=== PATIENT | male | born 1955 | race Caucasian/White ===

== ENCOUNTER 2018-05-29 17:06 | Observation (INO) ==
--- NOTE | 2018-05-29 17:19 | Emergency Department Note ---
ED Disposition Clinical Impression: Non-ST elevation [place] (NSTEMI) Disposition: Still a Patient Condition on Discharge: Good Referrals: Wen Spence [Primary Care Provider] - - Critical Care Critical Care Time: No Attestation: On , the high probability of a clinically significant, sudden or life threatening deterioration of the following system(s) required my full and direct attention, intervention and personal management. The time I documented below is in addition to time spent performing reported procedures but includes the following listed in this critical care notation. Medical Decision Making - Tato Inquiry Pt receiving controlled substance: No Vital Signs: 05/29/18 17:06 05/29/18 17:36 05/29/18 18:09 Temperature 98.3 F Temperature Source Oral Pulse Rate [Right Brachial] 73 68 71 Respiratory Rate 18 20 18 Blood Pressure [Right Arm] 180/97 158/85 163/90 Blood Pressure Mean [Right Arm] 124 109 114 Blood Pressure Source [Right Arm] Automatic Cuff Automatic Cuff Automatic Cuff Blood Pressure Position [Right Arm] Sitting Sitting Sitting 02 Sat by Pulse Oximetry 97 98 99 Oxygen Delivery Method Room Air Room Air Room Air - Lab Data Lab Results 05/29/18 17:10: WBC 9.2, RBC 5.29, Hgb 15.2, Hct 44.6, MCV 84.2, MCH 28.8, MCHC 34.2, RDW 13.4, Plt Count 240, MPV 6.6 L, Neut % (Auto) 62.4, Lymph % (Auto) 27.9, [place] % (Auto) 6.1, Eos % (Auto) 3.3, Baso % (Auto) 0.3, Neut # (Auto) 5.8 , Lymph # (Auto) 2.6, [place] # (Auto) 0.6, Eos # (Auto) 0.3, Baso # (Auto) 0.0 05/29/18 17:10: Sodium 139, Potassium 3.7, Chloride 102, Carbon Dioxide 29, Anion Gap 11.7, BUN 13, Creatinine 0.86, Estimated Creat Clear 103, Estimated GFR 89, Est GFR ( Amer) 108, Glucose 147 H, Calcium 9.7, Troponin I 1.45 H Result diagrams: 05/29/18 17:10 05/29/18 17:10 Orders (Tests/Meds): ED MEDICATIONS Generic Name Dose Route Start Last Admin Trade Name Freq PRN Reason Stop Dose Admin Atorvastatin Calcium 40 mg 05/29/18 21:00 Lipitor 40mg Tablet PO 06/28/18 20:59 HS ERIKA Enoxaparin Sodium 100 mg 05/29/18 18:15 Lovenox 100mg/Ml Syringe SQ 06/28/18 18:14 Q12H ERIKA Metoprolol Tartrate 25 mg 05/29/18 18:15 Lopressor 25mg Tablet PO 06/28/18 18:14 Q8H ERIKA Discontinued Medications Generic Name Dose Route Start Last Admin Trade Name Freq PRN Reason Stop Dose Admin Aspirin 324 mg 05/29/18 17:19 05/29/18 17:26 Aspirin 81mg Chewable Tablet PO 05/29/18 17:20 324 mg ONCE ONE Administration Ticagrelor 180 mg 05/29/18 18:02 Brilinta 90mg Tablet PO 05/29/18 18:03 ONCE ONE ORDERS Category Date Time Status XR chest portable Stat Exams 05/29/18 17:19 Taken - Radiology Data #1 Image(s): Chest Image Reviewed: Yes I reviewed the patient's radiology image Preliminary Findings: Normal/NAD - ECG Data Tracing #1 EKG interpreted by Dedrick Ybarra MD: Rhythm: sinus Rate: 77 [place]: Left Ectopy: none Conduction: normal ST Segment Changes: none T Wave Changes: none Q Waves: none LVH with repolarization abnormality Poor R wave progression No prior EKGs available for comparison - Physician Consults Physician Consulted: Genaro Time: 18:02 Reason -: Cardiology Eval/Care Comment/Response: Lovenox 1 mg/kg twice daily, Brilinta 180 mg p.o., metoprolol tartrate 25 mg every 8 hours, Lipitor 40 mg daily. Aspirin already administered. Additional Consult: Kiki Time: 18:07 Reason -: Admission Comment/Response: Fasting BMP in the morning - GRISELDA Score for Non-STEMI Age of patient: 65 yrs or more Number of risk factors for CAD: Presence of less than 3 Prior coronary artery stenosis(seen in coronary angiography): Less than 50% ST-Segment deviation on ECG (more than 1 min): Absent Prior aspirin intake: No ASA in the last 7 days Severe anginal chest pain: No or one episode in last 24 hours Elevated cardiac markers(CK-MB or troponin): Present Non-Stemi Risk Score: 2 General Adult HPI - General Chief complaint: Chest Pain Stated complaint: chest pain Time Seen by Provider: 05/29/18 17:12 Mode of Arrival: Ambulatory Limitations: No Limitations Description of Symptoms (Recalled from ER Triage Doc. by RN): Pt reported aching chest pain in sternal area, pt reports pain began approx 5 mins after moving heavy shelving around. Pt reports he saw his PCP after chest pain, went [facility] outpatient lab work, states his PCP office called him to tell him his Troponin level was elevated and he needed to go to the ER. Pt denies presence of pain at this time - History of Present Illness HPI narrative: The patient had a 30-minute episode of chest pain today at about 2 PM accompanied by profuse diaphoresis, tingling in his left fingers. Denies shortness of breath. Had some sensation of heartburn, but no nausea or vomiting. No radiation. No previous similar pains. Currently pain-free. Saw his primary care physician who did an EKG in the office and sent him for outpatient laboratories. Troponin came back elevated so they called him and sent him into the emergency room to be evaluated. He does not have any known heart disease, diabetes, hypertension, or hyperlipidemia. He is a non-smoker. Family history of a heart attack in a grandparent and strokes in a brother. - Related Data Allergies Allergy/AdvReac Type Severity Reaction Status Date / Time penicillin G [PENICILLIN G] Allergy Unknown Verified 05/29/18 17:12 BEE STINGS Allergy Unknown Uncoded 10/03/17 15:17 [facility] History I have reviewed the patient's past medical history: Yes Medical History: Denies:: Diabetes Mellitus Type 1, Diabetes Mellitus Type 2 - Social History Alcohol Intake: never - Psychiatric History Expresses thoughts of harming self/others: None Suicide Plan Description: No Plan ROS Obtained: Yes All systems reviewed & no additional complaints - Constitutional Constitutional: Reports excessive sweating - Cardiovascular Cardiovascular: Reports chest pain - Gastrointestinal Gastrointestingal: Reports: as per HPI, dyspepsia. Denies: nausea, vomiting - Neurologic Neurologic: Reports tingling Physical Exam - General General appearance: alert, in no apparent distress - Head Head exam: atraumatic, normocephalic, normal inspection - Eye Eye exam: Present: normal appearance, PERRL, EOMI - ENT ENT exam: Present: mucous membranes moist - Neck Neck exam: Present: normal inspection, full ROM, trachea midline. Absent: meningismus, lymphadenopathy - Chest Chest inspection: Present: normal inspection, symmetric chest wall rise. Absent : tenderness - Respiratory Respiratory exam: Present: normal lung sounds bilaterally. Absent: respiratory distress - Cardiovascular Cardiovascular exam: Present: regular rate, normal rhythm. Absent: JVD - Abdominal Exam Abdominal exam: Present: soft, normal bowel sounds. Absent: distention, tenderness, guarding - Extremities Exam Extremities exam: Present: normal inspection, full ROM, normal capillary refill. Absent: calf tenderness - Neurological Exam Neurological exam: Present: alert, oriented X3 - Psychiatric Psychiatric exam: Present: normal affect, normal mood - Skin Skin exam: Present: warm, dry, intact, normal color
[2018-05-29 17:30] LABS: Basophils % 0.3 % (0.1-2.0); Eosinophils # 0.3 K/mm3 (0.0-0.4); Eosinophils % 3.3 % (0.1-12.0); Hematocrit 44.6 % (42.0-52.0); Hemoglobin 15.2 g/dL (14.1-18.0); Lymphocytes # 2.6 K/mm3 (0.7-4.5); Lymphocytes % 27.9 K/mm3 (10-50); Mean Corpuscular HGB Conc 34.2 g/dL (31.8-35.4); Mean Corpuscular Hemoglobin 28.8 pg (27.0-31.2); Mean Corpuscular Volume 84.2 fl (80-94); Mean Platelet Volume 6.6 fl (7.4-10.4); Monocytes # 0.6 K/mm3 (0.1-1.0); Monocytes % 6.1 % (1.7-9.3); Neutrophils # 5.8 K/mm3 (1.8-7.8); Neutrophils % 62.4 % (37.0-80.0); Platelet Count 240 K/mm3 (142-424); Red Blood Count 5.29 M/mm3 (4.60-6.20); Red Cell Distribution Width 13.4 % (11.5-17.5); White Blood Count 9.2 K/mm3 (4.8-10.8)
[2018-05-29 17:53] LABS: Anion Gap 11.7 mEq/L (5-15); Calcium 9.7 mg/dL (8.5-10.1); Potassium 3.7 mmoL/L (3.5-5.1)
[2018-05-30 06:06] LABS: Anion Gap 8.9 mEq/L (5-15); Calcium 9.3 mg/dL (8.5-10.1); Potassium 3.9 mmoL/L (3.5-5.1)
[2018-05-30 07:04] LABS: Chol/HDL Ratio 4.7 (1-3.5)
--- NOTE | 2018-05-30 07:13 | Pharmacy Consult Notes ---
[facility] Pharmacy VTE Monitoring - Patient Demographics Admission date: 05/29/18 Report Date: 05/30/18 Time: 07:13 Allergies/Adverse Reactions: Patient Allergies penicillin G [PENICILLIN G] Allergy (Unknown, Verified 05/29/18 17:12) BEE STINGS Allergy (Unknown, Uncoded 10/03/17 15:17) Height: 1.75 m Weight: 102.625 kg Patient Problems: Current Active Problems Non-ST elevation [place] (NSTEMI) (Acute) - VTE Risk Labs: VTE Related Lab Results Hgb 15.2 g/dL (14.1-18.0) 05/29/18 17:10 Hct 44.6 % (42.0-52.0) 05/29/18 17:10 Plt Count 240 K/mm3 (142-424) 05/29/18 17:10 BUN 11 mg/dL (7-18) 05/30/18 05:41 Creatinine 0.84 mg/dL (0.70-1.30) 05/30/18 05:41 Estimated Creat Clear 107 mL/min (0-300) 05/30/18 05:41 VTE Score: 7 VTE Risk Level: Moderate Risk - Prophylaxis VTE Prophylaxis Ordered?: Yes Types of VTE Prophylaxis: TEDS Knee High Location of Applied Device: Bilateral Lower Extremeties - VTE Diagnosis Confirmed Treatment or plan recommended: Continue Current Treatment
--- NOTE | 2018-05-30 07:54 | History & Physical Report ---
*Admission Date: 05/29/18 *Chief complaint: Chest pain *History of present illness: 63-year-old white male, retired pharmacist, with no past medical history other than a nonhealing wound on his left anterior cohen, from an accident several years ago with chronically recurring superficial cellulitis, who had a 30 minute episode of chest pain yesterday that was in the left lateral sternal border with minimal left arm tingling. Had some heaviness but no diaphoresis or nausea or vomiting. Went to his physician in [place] where enzymes were drawn and were positive. Instructed to come to the emergency department and he came to [facility] to be evaluated. Enzymes were repeated, once again found to be elevated. Non-STEMI was diagnosed , no EKG changes were noted and he was admitted to hospital for overnight observation and evaluation by cardiology for probable left heart cath. This morning he is pain-free and has no complaints per [facility] History I have reviewed the patient's past medical history: Yes Medical History: Denies:: Cancer, Diabetes Mellitus Type 1, Diabetes Mellitus Type 2, Internal Pacemaker, MRSA Other Medical History: Reports: Arthritis Comment: Nonhealing wound on the left cohen, treated in 2013 with antibiotics. Cultured and found to be non-staph, breaks open occasionally. Patient denies history of diabetes Laterality Cases: Left: Arthroscopy Knee, Bilateral: Tonsillectomy Other Surgeries: No: Pacemaker Amputation: No Fractures: Yes - *Social History Educational Level: Completed College Smoking Status: Former smoker Tobacco Type: cigarettes #Yrs smoked (if former smoker): 1 Alcohol Intake: current Alcohol Intake Frequency:: holidays/special occasions only Occupational Status: retired Housing: house Household Members: spouse - Psychiatric History Expresses thoughts of harming self/others: None Suicide Plan Description: No Plan *Family Hx:: Cancer, Coronary Artery Disease, Heart Attack, Hyperlipidemia, Hypertension, Stroke, Thyroid Disorder Review of Systems - Review of Systems Review of systems:: pertinent systems reviewed and negative unless documented below - Constitutional Denies body ache(s) - Eyes Denies blind spots, Denies blurry vision - ENT Denies bleeding gums, Denies dry mouth - *Cardiovascular Reports chest pain, Reports chest pain at rest, Denies shortness of breath, Denies shortness of breath with activity - *Respiratory Denies change in phlegm color, Denies chest congestion, Denies cough - *Gastrointestinal Denies abdominal pain, Denies belching - *Genitourinary Denies difficulty urinating - *Musculoskeletal Reports joint pain, Denies abnormal walking, Denies limited joint movement, Denies loss of height - Integumentary/Breasts Reports non-healing lesions (On left leg), Reports sores - *Neurologic Reports tingling, Denies abnormal walking, Denies abnormal hearing Meds Home Medications Medication Instructions Recorded Confirmed Type No Known Home Medications 05/30/18 05/30/18 History Allergies Allergy/AdvReac Type Severity Reaction Status Date / Time penicillin G [PENICILLIN G] Allergy Unknown Verified 05/29/18 17:12 BEE STINGS Allergy Unknown Uncoded 10/03/17 15:17 Exam Vital signs and Labs for Last 24 Hours: Temp Pulse Resp BP Pulse Ox 98.9 F 60 14 135/71 98 05/30/18 05:02 05/30/18 05:02 05/30/18 05:02 05/30/18 05:02 05/30/18 05:02 Laboratory Results - last 24 hr 05/29/18 17:10: WBC 9.2, RBC 5.29, Hgb 15.2, Hct 44.6, MCV 84.2, MCH 28.8, MCHC 34.2, RDW 13.4, Plt Count 240, MPV 6.6 L, Neut % (Auto) 62.4, Lymph % (Auto) 27.9, [place] % (Auto) 6.1, Eos % (Auto) 3.3, Baso % (Auto) 0.3, Neut # (Auto) 5.8 , Lymph # (Auto) 2.6, [place] # (Auto) 0.6, Eos # (Auto) 0.3, Baso # (Auto) 0.0 05/29/18 17:10: Sodium 139, Potassium 3.7, Chloride 102, Carbon Dioxide 29, Anion Gap 11.7, BUN 13, Creatinine 0.86, Estimated Creat Clear 103, Estimated GFR 89, Est GFR ( Amer) 108, Glucose 147 H, Calcium 9.7, Troponin I 1.45 H 05/29/18 19:40: Troponin I 2.17 H 05/30/18 05:41: Sodium 140, Potassium 3.9, Chloride 105, Carbon Dioxide 30, Anion Gap 8.9, BUN 11, Creatinine 0.84, Estimated Creat Clear 107, Estimated GFR 92, Est GFR ( Amer) 111, Glucose 152 H, Calcium 9.3 05/30/18 05:41: Triglycerides 149, Cholesterol 197, LDL Cholesterol 125, VLDL Cholesterol 30, HDL Cholesterol 42, Cholesterol/HDL Ratio 4.7 H I & O for Last 24 hours: Intake & Output 05/27/18 05/28/18 05/29/18 05/30/18 11:59 11:59 11:59 11:59 Weight 226 lb 4 oz Narrative: Oropharynx clear, moist. No ENT abnormalities otherwise, no JVD. Lungs in the anterior panchal are clear, heart rate regular without murmurs, moving all extremities normal power. Abdomen soft nontender. Edema in his legs, however the anterior left cohen two [address] to the ankle has a nonhealing wound with surrounding brawny skin changes without edema , with some yellow scant exudate on the bandage. H&P: Result - Labs Labs: Short CBC 05/29/18 Range/Units 17:10 WBC 9.2 (4.8-10.8) K/mm3 Hgb 15.2 (14.1-18.0) g/dL Hct 44.6 (42.0-52.0) % Plt Count 240 (142-424) K/mm3 BMP 05/29/18 05/30/18 17:10 05:41 Sodium 139 140 Potassium 3.7 3.9 Chloride 102 105 Carbon Dioxide 29 30 BUN 13 11 Creatinine 0.86 0.84 Glucose 147 H 152 H Calcium 9.7 9.3 Cardiac Enzymes 05/29/18 05/29/18 Range/Units 17:10 19:40 Troponin I 1.45 H 2.17 H (0.00-0.06) ng/ml Assessment and Plan (1) Diabetes mellitus type 2, noninsulin dependent Current visit: Yes Status: Chronic Category: Medical Code(s): E11.9 - Type 2 diabetes mellitus without complications Newly diagnosed. Patient has no knowledge of diabetes in the past. After heart cath and on discharge we will discharge on appropriate medication probably institute metformin therapy. (2) Non-healing ulcer of lower leg Current visit: Yes Status: Acute Category: Medical Code(s): L97.909 - Non- pressure chronic ulcer of unspecified part of unspecified lower leg with unspecified severity Consistent with diagnosis of diabetes. Wound care with lymphedema consult (3) Non-ST elevation [place] (NSTEMI) Current visit: Yes Status: Acute Category: Medical Code(s): I21.4 - Non- ST elevation (NSTEMI) myocardial infarction Cardiology consultation today.
--- NOTE | 2018-05-30 08:35 | Consult Report ---
History of Present Illness Consult date: 05/30/18 Requesting physician: Owen Swanson Consult reason: chest pain Chief complaint: chest pain Additional Medical History:: 1. Prediabetic with history of hemoglobin A1c of 7.8 1 year ago, treated with diet and weight loss 2. History of hyperlipidemia, treated with diet and weight loss 3. Recurrent left cohen ulcer 4. Left testicular hydrocele 5. Non-ST elevation [place], 05/29/18 History of present illness: 63-year-old white male with history as noted above presented to his doctor's office in [place] for complaint of 25-30 minutes of anterior chest pressure with some left finger tingling that began after removing some heavy items. He denies any significant pain, shortness of breath or diaphoresis. He did have some nausea/indigestion type symptoms. Symptoms had largely resolved by the time he got to the doctor's office but an abnormal EKG and initial troponin elevation prompted referral to the ER for further evaluation. In the ER second troponin was noted to be elevated as well patient was admitted for non-ST elevation [place]. EKG shows sinus rhythm with poor R-wave progression anteriorly with no acute ST elevation. Patient was given aspirin and Brilinta with no further chest pain overnight. Cardiology consulted for evaluation recommendations. [facility] History Medical History: Denies:: Cancer, Diabetes Mellitus Type 1, Diabetes Mellitus Type 2, Internal Pacemaker, MRSA Other Medical History: Reports: Arthritis Laterality Cases: Left: Arthroscopy Knee, Bilateral: Tonsillectomy Other Surgeries: No: Pacemaker Amputation: No Fractures: Yes - *Social History Educational Level: Completed College Smoking Status: Former smoker Tobacco Type: cigarettes #Yrs smoked (if former smoker): 1 Alcohol Intake: current Alcohol Intake Frequency:: holidays/special occasions only Occupational Status: retired Housing: house Household Members: spouse - Psychiatric History Expresses thoughts of harming self/others: None Suicide Plan Description: No Plan *Family Hx:: Cancer, Coronary Artery Disease, Heart Attack, Hyperlipidemia, Hypertension, Stroke, Thyroid Disorder Meds Home Medications Medication Instructions Recorded Confirmed Type No Known Home Medications 05/30/18 05/30/18 History Allergies Allergy/AdvReac Type Severity Reaction Status Date / Time penicillin G [PENICILLIN G] Allergy Unknown Verified 05/29/18 17:12 BEE STINGS Allergy Unknown Uncoded 10/03/17 15:17 Review of Systems - *Cardiovascular Reports chest pain, Reports shortness of breath with activity - *Respiratory Denies shortness of breath with activity - *Gastrointestinal Denies abdominal pain - *Genitourinary Denies difficulty urinating - *Musculoskeletal Denies joint pain - *Neurologic Reports tingling, Denies abnormal walking, Denies abnormal hearing Exam Vital signs and Labs for Last 24 Hours: Temp Pulse Resp BP Pulse Ox 98.5 F 64 18 134/91 96 05/30/18 08:02 05/30/18 08:02 05/30/18 08:02 05/30/18 08:02 05/30/18 08:02 Laboratory Results - last 24 hr 05/29/18 17:10: WBC 9.2, RBC 5.29, Hgb 15.2, Hct 44.6, MCV 84.2, MCH 28.8, MCHC 34.2, RDW 13.4, Plt Count 240, MPV 6.6 L, Neut % (Auto) 62.4, Lymph % (Auto) 27.9, [place] % (Auto) 6.1, Eos % (Auto) 3.3, Baso % (Auto) 0.3, Neut # (Auto) 5.8 , Lymph # (Auto) 2.6, [place] # (Auto) 0.6, Eos # (Auto) 0.3, Baso # (Auto) 0.0 05/29/18 17:10: Sodium 139, Potassium 3.7, Chloride 102, Carbon Dioxide 29, Anion Gap 11.7, BUN 13, Creatinine 0.86, Estimated Creat Clear 103, Estimated GFR 89, Est GFR ( Amer) 108, Glucose 147 H, Calcium 9.7, Troponin I 1.45 H 05/29/18 19:40: Troponin I 2.17 H 05/30/18 05:41: Sodium 140, Potassium 3.9, Chloride 105, Carbon Dioxide 30, Anion Gap 8.9, BUN 11, Creatinine 0.84, Estimated Creat Clear 107, Estimated GFR 92, Est GFR ( Amer) 111, Glucose 152 H, Calcium 9.3 05/30/18 05:41: Triglycerides 149, Cholesterol 197, LDL Cholesterol 125, VLDL Cholesterol 30, HDL Cholesterol 42, Cholesterol/HDL Ratio 4.7 H I & O for Last 24 hours: Intake & Output 05/27/18 05/28/18 05/29/18 05/30/18 11:59 11:59 11:59 11:59 Intake Total 0 / 0 Balance 0 / 0 Weight 226 lb 4 oz - *Routine Neck Exam Absent: JVD, carotid bruit - *Routine Respiratory Exam Present: CTA bilaterally - *Routine Cardiovascular Exam Present: RRR. Absent: murmur, gallop, rubs - *Routine Abdominal Exam Present: soft, tenderness - *Routine Extremities Exam Absent: edema - *Routine Neurological Exam Present: alert, oriented X3, moving all extremities Assessment and Plan (1) Non-ST elevation [place] (NSTEMI) Current visit: Yes Status: Acute Category: Medical Code(s): I21.4 - Non- ST elevation (NSTEMI) myocardial infarction (2) Diabetes mellitus type 2, noninsulin dependent Current visit: Yes Status: Chronic Category: Medical Code(s): E11.9 - Type 2 diabetes mellitus without complications (3) Non-healing ulcer of lower leg Current visit: Yes Status: Acute Category: Medical Code(s): L97.909 - Non- pressure chronic ulcer of unspecified part of unspecified lower leg with unspecified severity - Assessment and plan all Dx Assessment and Plan for all problems:: 1. Patient has been started on dual antiplatelet therapy in the form of aspirin and Brilinta. He is also been started on metoprolol therapy. 2. In the setting of non-ST elevation MS, left heart catheterization has been recommended. Risks, benefits and procedure explained to the patient and his and they both agree to proceed. 3. Will obtain an echocardiogram due to non-ST elevation [place]. 4. With history of hyperlipidemia on no medical therapy will obtain repeat lipid and liver enzymes prior to discharge. Statin therapy has been started.
[2018-05-31 06:04] LABS: Basophils % 0.4 % (0.1-2.0); Eosinophils # 0.2 K/mm3 (0.0-0.4); Eosinophils % 1.8 % (0.1-12.0); Hematocrit 43.3 % (42.0-52.0); Hemoglobin 14.7 g/dL (14.1-18.0); Lymphocytes # 2.6 K/mm3 (0.7-4.5); Lymphocytes % 23.8 K/mm3 (10-50); Mean Corpuscular Hemoglobin 28.8 pg (27.0-31.2); Mean Corpuscular Volume 84.9 fl (80-94); Mean Platelet Volume 6.6 fl (7.4-10.4); Monocytes # 0.7 K/mm3 (0.1-1.0); Monocytes % 6.2 % (1.7-9.3); Neutrophils # 7.3 K/mm3 (1.8-7.8); Neutrophils % 67.8 % (37.0-80.0); Platelet Count 222 K/mm3 (142-424); Red Cell Distribution Width 13.4 % (11.5-17.5); White Blood Count 10.8 K/mm3 (4.8-10.8)
[2018-05-31 06:05] LABS: Anion Gap 12.1 mEq/L (5-15); Calcium 9.3 mg/dL (8.5-10.1); Potassium 4.1 mmoL/L (3.5-5.1)
--- NOTE | 2018-05-31 08:39 | Progress Note ---
Subjective Date: 05/31/18 Time: 08:32 Principal diagnosis: NSTEMI Interval history: 63 yo WM at bedside eating breakfast in NAD. No chest pains or SOA. Exam Vital signs and Labs for Last 24 Hours: Temp Pulse Resp BP Pulse Ox 99.0 F 60 16 124/63 96 05/31/18 08:00 05/31/18 08:00 05/31/18 08:00 05/31/18 08:00 05/31/18 08:00 Laboratory Results - last 24 hr 05/30/18 10:48: Activated Clotting Time > 400 H* 05/31/18 05:40: WBC 10.8, RBC 5.10, Hgb 14.7, Hct 43.3, MCV 84.9, MCH 28.8, MCHC 34.0, RDW 13.4, Plt Count 222, MPV 6.6 L, Neut % (Auto) 67.8, Lymph % (Auto ) 23.8, [place] % (Auto) 6.2, Eos % (Auto) 1.8, Baso % (Auto) 0.4, Neut # (Auto) 7.3, Lymph # (Auto) 2.6, [place] # (Auto) 0.7, Eos # (Auto) 0.2, Baso # (Auto) 0.0 05/31/18 05:40: Sodium 138, Potassium 4.1, Chloride 104, Carbon Dioxide 26, Anion Gap 12.1, BUN 14 D, Creatinine 0.83, Estimated Creat Clear 107, Estimated GFR 93, Est GFR ( Amer) 113, Glucose 160 H, Calcium 9.3 05/31/18 05:40: Hemoglobin A1c 7.3 H I & O for Last 24 hours: Intake & Output 05/28/18 05/29/18 05/30/18 05/31/18 11:59 11:59 11:59 11:59 Intake Total 0 / 0 480 / 480 Output Total 600 / 600 Balance 0 / 0 -120 / -120 Weight 226 lb 4 oz 219 lb 4 oz - *Routine Respiratory Exam Present: CTA bilaterally - *Routine Cardiovascular Exam Present: RRR. Absent: murmur, gallop, rubs Progress Note: A&P (1) Non-ST elevation [place] (NSTEMI) Status: Acute Current Visit: Yes (2) Diabetes mellitus type 2, noninsulin dependent Status: Chronic Current Visit: Yes (3) Non-healing ulcer of lower leg Status: Acute Current Visit: Yes Assessment and Plan for All Diagnoses:: OK for discharge from Cardiology standpoint. Continue ASA 81 mg daily, Brilinta 90 mg BID, Atorvastatin 40 mg daily and lisinopril 2.5 mg daily. Follow up in one to two weeks.
--- NOTE | 2018-05-31 08:45 | Discharge Summary ---
General - General Admission date:: 05/29/18 Discharge date: 05/31/18 HPI HPI: 63-year-old white male, retired pharmacist, with no past medical history other than a nonhealing wound on his left anterior cohen, from an accident several years ago with chronically recurring superficial cellulitis, who had a 30 minute episode of chest pain yesterday that was in the left lateral sternal border with minimal left arm tingling. Had some heaviness but no diaphoresis or nausea or vomiting. Went to his physician in [place] where enzymes were drawn and were positive. Instructed to come to the emergency department and he came to [facility] to be evaluated. Enzymes were repeated, once again found to be elevated. Non-STEMI was diagnosed , no EKG changes were noted and he was admitted to hospital for overnight observation and evaluation by cardiology for probable left heart cath. This morning he is pain-free and has no complaints per. Hospital Course Hospital Course: Patient was admitted, ruled in for myocardial infarction by enzyme criteria. EKG showed no evidence of ST segment changes and the diagnosis of non-STEMI was made. Patient was also found to be hyperglycemic. He states that he is known about this a while but has been "controlling it with diet." Patient was taken to left heart cath the morning after admission. Please see report below copied into this dictation document: ANGIOGRAPHIC RESULTS: 1. The left main artery normal 2. The left anterior descending artery has proximal 40-50% stenoses followed by additional 40% mid vessel stenosis along 90% stenosis which extends all the way down into the distal portion of the LAD. Very distally as the LAD wraps the apex is a long 80-90% stenosis. circumflex artery is a nondominant vessel and has proximal 30% with a 40-50% stenosis which then gives rise to a first obtuse marginal artery with minimal disease. 3. The circumflex artery is a nondominant vessel and has proximal 30% with a 40-50% stenosis which then gives rise to a first obtuse marginal artery with minimal disease. 4. The right coronary artery is a dominant vessel and has a mid vessel 70% stenosis with distal occlusion of the LAD. The posterior lateral ventricular branch is a large vessel and has proximal 40% stenosis distal 60-70% stenosis. This is a very large branching marginal vessel. 5. The SILVA ventriculogram reveals preserved ejection fraction 55% 6. The left ventricular end-diastolic pressure 15 to 20 mmHg IMPRESSION: 1. Severe coronary artery disease as described above 2. Successful reconstruction of the mid and distal LAD severe disease reduced to less than 10% with 3 drug-eluting stents 3. Severe disease in the mid dominant right coronary artery with successful stenting the mid right coronary artery severe disease reduced to 0% with 1 drug-eluting stent 4. Occlusion of the posterior descending artery with successful revascularization with a drug-eluting stent restoring the 100% occlusion to 0% with GRISELDA-3 distal runoff 5. Preserved ejection fraction 6. Mildly elevated LVEDP PLAN: 1. Brilinta and aspirin 2. LDL less than 55 3. Risk factor modification 4. Cardiac rehabilitation 5. Avoidance of tobacco products 6. Chandan inhibitors beta blockers Patient did well after catheterization. Hemoglobin A1c this morning was 7.6. Patient will be discharged home today with the above-noted medications although we will avoid beta blockers because of his resting bradycardia, we will start metformin 500 twice daily. Follow-up will be per cardiology in 1 week and with his regular physician in 2 weeks. Please note before discharge she will have physical therapy wound care evaluation for the long-term nonhealing wound on his cohen with evaluation from our lymphedema special Objective Vital signs: Temp Pulse Resp BP Pulse Ox 99.0 F 60 16 124/63 96 05/31/18 08:00 05/31/18 08:00 05/31/18 08:00 05/31/18 08:00 05/31/18 08:00 Narrative: Patient is alert, walking around the room, pleasant and talkative. Oropharynx clear, no JVD. Otherwise ENT exam unremarkable. Lungs clear bilaterally. Heart rate regular without murmurs or gallops. Abdomen soft and nontender. Extremities no ankle edema. The wound on the left cohen is unchanged. Good distal pulses. Results Labs on day of discharge: Labs from last 24 hours 05/31/18 05/31/18 05/31/18 05:40 05:40 05:40 WBC 10.8 RBC 5.10 Hgb 14.7 Hct 43.3 MCV 84.9 MCH 28.8 MCHC 34.0 RDW 13.4 Plt Count 222 MPV 6.6 L Neut % (Auto) 67.8 Lymph % (Auto) 23.8 Mcmullen % (Auto) 6.2 Eos % (Auto) 1.8 Baso % (Auto) 0.4 Neut # (Auto) 7.3 Lymph # (Auto) 2.6 Mcmullen # (Auto) 0.7 Eos # (Auto) 0.2 Baso # (Auto) 0.0 Activated Clotting Time Sodium 138 Potassium 4.1 Chloride 104 Carbon Dioxide 26 Anion Gap 12.1 BUN 14 D Creatinine 0.83 Estimated Creat Clear 107 Estimated GFR 93 Est GFR ( Amer) 113 Glucose 160 H Hemoglobin A1c 7.3 H Calcium 9.3 05/30/18 10:48 WBC RBC Hgb Hct MCV MCH MCHC RDW Plt Count MPV Neut % (Auto) Lymph % (Auto) Mcmullen % (Auto) Eos % (Auto) Baso % (Auto) Neut # (Auto) Lymph # (Auto) Mcmullen # (Auto) Eos # (Auto) Baso # (Auto) Activated Clotting Time > 400 H* Sodium Potassium Chloride Carbon Dioxide Anion Gap BUN Creatinine Estimated Creat Clear Estimated GFR Est GFR ( Amer) Glucose Hemoglobin A1c Calcium DS: Diagnosis - Discharge Diagnosis (1) Non-ST elevation [place] (NSTEMI) Status: Acute (2) Diabetes mellitus type 2, noninsulin dependent Status: Chronic (3) Non-healing ulcer of lower leg Status: Chronic Discharge Plan - Patient Discharge Instructions ACTIVITY: Limited activity, No heavy lifting DIET: continue same diet, cardiac - Follow up Plan Follow up with: Francis Lam MD [Staff Physician] - 1 week Wen Spence [Primary Care Provider] - 2 weeks Disposition: Home, [facility] Medications: Home Medications Medication Instructions Recorded Confirmed Type No Known Home Medications 05/30/18 05/30/18 History Prescriptions/Medication Reconciliation: New Aspirin [Aspirin 81mg chewable tab] 81 mg PO DAILY #30 tab.chew Atorvastatin Calcium [Lipitor 40mg Tablet] 40 mg PO HS #30 tab Lisinopril [Zestril 2.5mg Tablet] 2.5 mg PO DAILY #30 tab Metformin HCl [Metformin 500mg Tablet] 500 mg OP BID #60 tab Ticagrelor [Brilinta 90mg Tablet] 90 mg PO BID #60 tab No Action No Known Home Medications
--- NOTE | 2018-05-31 12:57 | Cardiology Report ---
PROCEDURE: 2-D M-mode and color Doppler study INDICATIONS FOR THE TEST: Chest pain+ COPD Heart Murmur Tobacco Smokingex Palpitations Fatigue Syncope Edema+ Hypertension Diabetes Mellituspre Rheumatic Fever SOB RODNEY+Obesity Hyperlipidemia+ Family History HD+ Additional History dysrhythmia noted PATIENT INFORMATION HEIGHT: 69 WEIGHT: 226 GENDER: Male B/P: 134/91 2-D/M-MODE INTERPRETATION: 2-D MEASUREMENTS OBSERVED VALUES IN CMS Right Ventricular Dimension (RVDd) 2.3 Interventricular Septum (Thickness)(IVsd) 1.2 Left Ventricular Internal Dimensions(LVIDd) 5.5 Left Ventricular Posterior Wall (Thickness)(LVPWd) 1.2 Aortic Root 2.7 Aortic Cusp Separation 2.0 Left Atrial Dimensions (LAD) 4.0 2D 1. Left atrium is mildly enlarged, left ventricle is normal size, mild concentric left ventricular hypertrophy, visually estimated ejection fraction 55% with no obvious regional wall motion abnormality. 2. The right atrium and right ventricle are normal size and contractility. 3. The aortic valve is minimally thickened and fibrosed. 4. The mitral and tricuspid valves are normal. 5. The pulmonic valve is poorly visualized. 6. No significant pericardial effusion noted. DOPPLER INTERROGATION: Doppler interrogation of the aortic, mitral and tricuspid valvular presence of mild mitral and tricuspid regurgitation, tricuspid regurgitant jet velocity is insufficient for calculation of the right ventricular systolic pressure, grade 1 diastolic dysfunction seen with tissue Doppler evidence of raised left atrial pressure. CONCLUSION: 1. Mildly enlarged left atrium, normal left ventricular size, visually estimated ejection fraction of 55% with no obvious regional wall motion abnormality, there is mild concentric left ventricular hypertrophy, grade 1 diastolic dysfunction seen with tissue Doppler evidence of raised left atrial pressure. 2. Mild mitral and tricuspid regurgitation 3. No significant pericardial effusion noted.
== END 2018-05-31 11:00 | disposition home or self-care (01) ==
LOC: 2ND 17:06 → ER 17:06 → INTOOBSV 19:05 → OBSVTOIN 19:05 → 2ND 19:06
PROVIDERS: ADMIT Internal Medicine Adolescent Medicine; ATTEND Internal Medicine Adolescent Medicine

== ENCOUNTER 2018-06-05 08:42 | Outpatient (RCR) | payer BC, MEDICARE, SELFPAY | END 2018-08-03 15:29 | disposition home or self-care (01) | LOC: PT 08:42 | PROVIDERS: Family Provider Family Medicine; PCP Family Medicine; Visit Provider Internal Medicine | DX: Z95.5 Presence of coronary angioplasty implant and graft (principal) | CPT/HCPCS: 93798 ==

== ENCOUNTER → 2018-06-13 09:14 | Outpatient (CLI) | payer BC, MEDICARE, SELFPAY ==
[2018-06-13 10:27] LABS: Alanine Aminotransferase 25 U/L (12-78); Albumin Level 3.8 gm/dL (3.4-5.0); Alkaline Phosphatase 83 U/L (46-116); Aspartate Amino Transferase 15 U/L (15-37); Bilirubin,Direct 0.3 mg/dL (0.0-0.2); Bilirubin,Indirect 1.6 mg/dL (0.0-0.9); Bilirubin,Total 1.9 mg/dL (0.2-1.0); Chol/HDL Ratio 2.3 (1-3.5); Cholesterol 107 mg/dL (140-200); HDL Cholesterol 46 mg/dL (27-67); LDL Cholesterol 46 mg/dL (0-130); Total Protein,Serum 6.8 gm/dL (6.4-8.2); Triglycerides 77 mg/dL (30-200); VLDL Cholesterol 15 mg/dL (0-40)
== END ==
PROVIDERS: Urology; PCP Family Medicine; Visit Provider Internal Medicine
DX: E11.9 Type 2 diabetes mellitus without complications (principal); I10 Essential (primary) hypertension; I21.4 Non-ST elevation (NSTEMI) myocardial infarction; I25.10 Atherosclerotic heart disease of native coronary artery without angina pectoris; Z95.5 Presence of coronary angioplasty implant and graft; T46.4X5A Adverse effect of angiotensin-converting-enzyme inhibitors, initial encounter; R05 Cough
CPT/HCPCS: 36415; 80061; 80076

== ENCOUNTER → 2018-07-10 07:41 | Outpatient (CLI) | payer BC, MEDICARE, SELFPAY ==
[2018-07-10 13:36] LABS: Alanine Aminotransferase 25 U/L (12-78); Albumin Level 3.7 gm/dL (3.4-5.0); Alkaline Phosphatase 81 U/L (46-116); Aspartate Amino Transferase 15 U/L (15-37); Bilirubin,Direct 0.3 mg/dL (0.0-0.2); Bilirubin,Indirect 1.7 mg/dL (0.0-0.9); Chol/HDL Ratio 2.4 (1-3.5); Cholesterol 98 mg/dL (140-200); HDL Cholesterol 41 mg/dL (27-67); LDL Cholesterol 43 mg/dL (0-130); Total Protein,Serum 6.5 gm/dL (6.4-8.2); Triglycerides 69 mg/dL (30-200); VLDL Cholesterol 14 mg/dL (0-40)
== END ==
PROVIDERS: PCP Family Medicine; Visit Provider Physician Assistant
DX: E11.9 Type 2 diabetes mellitus without complications (principal); I10 Essential (primary) hypertension; I21.4 Non-ST elevation (NSTEMI) myocardial infarction; I25.10 Atherosclerotic heart disease of native coronary artery without angina pectoris; R05 Cough; T46.4X5A Adverse effect of angiotensin-converting-enzyme inhibitors, initial encounter; Z95.5 Presence of coronary angioplasty implant and graft
CPT/HCPCS: 36415; 80061; 80076

== ENCOUNTER → 2018-07-23 07:57 | Outpatient (CLI) | payer BC, MEDICARE, SELFPAY ==
--- NOTE | 2018-07-23 07:58 | US_ITS ---
US liver HISTORY: Elevated liver enzymes ITS.REASON: z ORDERING PHYSICIAN: Francis Lam MD PATIENT AGE: 63 years COMPARISON: None FINDINGS: PANCREAS:Unremarkable. No obvious mass or abnormal fluid collection. No ductal dilatation LIVER:No focal liver lesions demonstrated. Homogeneous echogenicity. No intrahepatic biliary ductal dilatation evident. Appropriate directional blood flow within a nondilated portal vein RIGHT KIDNEY:Unremarkable. Normal size and echogenicity. No hydronephrosis GALLBLADDER:No gallstones, gallbladder wall thickening, pericholecystic fluid, or biliary dilatation. Small amount sludge is present IMPRESSION: 1. Small amount of sludge versus concentrated bile of questioned clinical significance. 2. Otherwise negative right upper quadrant ultrasound
== END ==
PROVIDERS: Family Provider Family Medicine; PCP Family Medicine; Visit Provider Internal Medicine
DX: E80.6 Other disorders of bilirubin metabolism (principal)
CPT/HCPCS: 76705

== ENCOUNTER → 2018-08-22 09:05 | Outpatient (CLI) | payer BC, MEDICARE, SELFPAY ==
[2018-08-21 09:30] LABS: Alanine Aminotransferase 26 U/L (12-78); Alkaline Phosphatase 87 U/L (46-116); Aspartate Amino Transferase 17 U/L (15-37); Bilirubin,Direct 0.3 mg/dL (0.0-0.2); Bilirubin,Indirect 1.3 mg/dL (0.0-0.9); Bilirubin,Total 1.6 mg/dL (0.2-1.0); Chol/HDL Ratio 2.3 (1-3.5); Cholesterol 117 mg/dL (140-200); HDL Cholesterol 52 mg/dL (27-67); LDL Cholesterol 54 mg/dL (0-130); Total Protein,Serum 7.2 gm/dL (6.4-8.2); Triglycerides 53 mg/dL (30-200); VLDL Cholesterol 11 mg/dL (0-40)
== END ==
PROVIDERS: Nurse Practitioner Family; Visit Provider Internal Medicine
DX: E78.5 Hyperlipidemia, unspecified (principal); E80.6 Other disorders of bilirubin metabolism; I11.9 Hypertensive heart disease without heart failure; I21.4 Non-ST elevation (NSTEMI) myocardial infarction; I25.10 Atherosclerotic heart disease of native coronary artery without angina pectoris; R00.1 Bradycardia, unspecified; R74.8 Abnormal levels of other serum enzymes; Z95.5 Presence of coronary angioplasty implant and graft; E11.9 Type 2 diabetes mellitus without complications
CPT/HCPCS: 36415; 80061; 80076; 83036

== ENCOUNTER → 2018-10-19 10:21 | Outpatient (CLI) | payer BC, MEDICARE, SELFPAY ==
--- NOTE | 2018-10-19 10:24 | US_ITS ---
US scrotum HISTORY: ITS.REASON: hydrocele, left ORDERING PHYSICIAN: Haroon Ramos MD PATIENT AGE: 63 years Comparison: None FINDINGS: There is a large left hydrocele. Low grade echoes are present within the hydrocele consistent with some underlying debris. No obvious testicular mass. Small parts probe could not be utilized therefore resolution is somewhat limited of the testicle. Blood flow is present in both testicles. The left testicle measures 5.3 x 1.9 x 2.4 cm. The right testicle measures 2.8 x 2.3 x 2 cm. Bilateral testicular blood flow noted. No obvious bowel loops evident within the large hydrocele. IMPRESSION: Large left hydrocele. No obvious testicular mass.
== END ==
PROVIDERS: PCP Family Medicine; Visit Provider Urology
DX: N43.3 Hydrocele, unspecified (principal)
CPT/HCPCS: 76870

== ENCOUNTER 2020-01-28 14:21 | Emergency (ER) | payer MEDICARE, SELFPAY ==
[2020-01-28 14:23] VITALS: BP 121/61; PULSE 80; RESP 18; TEMP 36.9; O2SAT 97; BMI 33.0
[2020-01-28 14:40] LABS: Basophils % 0.3 % (0.1-2.0); Eosinophils % 0.2 % (0.1-12.0); Hematocrit 40.4 % (42.0-52.0); Hemoglobin 13.3 g/dL (14.1-18.0); Lymphocytes % 3.6 % (10-50); Mean Corpuscular Hemoglobin 28.8 pg (27.0-31.2); Mean Corpuscular Volume 87.2 fl (80-94); Mean Platelet Volume 7.3 fl (7.4-10.4); Monocytes % 7.8 % (1.7-9.3); Neutrophils % 88.3 % (37.0-80.0); Platelet Count 228 K/mm3 (142-424); Red Blood Count 4.64 M/mm3 (4.60-6.20); Red Cell Distribution Width 13.4 % (11.5-17.5); White Blood Count 16.4 K/mm3 (4.8-10.8)
--- NOTE | 2020-01-28 14:40 | HMH.COUGH ---
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 He denies SOA, sore throat, myalgias, malaise, headache. He has multiple comorbidities that have him high risk for complications should he contract COVID-19 Home Medications: Home Medications Medication Instructions Recorded Confirmed Type omega-3 fatty acids 1,000 mg 1,000 mg PO BID cap 08/21/18 01/28/20 History capsule amlodipine 5 mg tablet 5 mg PO DAILY 06/04/19 01/28/20 History cholecalciferol (vitamin D3) 1,250 50,000 unit PO QWEEK 06/04/19 01/28/20 History mcg (50,000 unit) capsule coenzyme Q10 100 mg capsule 200 mg PO BID cap 06/04/19 01/28/20 History Aspirin [Aspirin 81mg chewable 81 mg PO DAILY 01/28/20 01/28/20 History tab] Atorvastatin Calcium [Lipitor 40mg 40 mg PO HS 01/28/20 01/28/20 History Tablet] Clopidogrel Bisulfate [Plavix 75mg 75 mg PO DAILY 01/28/20 01/28/20 History Tab] Metformin HCl [Glucophage] 1,000 mg PO BID 01/28/20 01/28/20 History guaiFENesin [Mucinex] 600 mg PO DAILY 01/28/20 01/28/20 History levoFLOXacin [Levaquin 750mg 750 mg PO DAILY #7 tab 01/28/20 Rx tablet] Allergies/Adverse Reactions: Allergies Allergy/AdvReac Type Severity Reaction Status Date / Time penicillin G [PENICILLIN G] Allergy Unknown Verified 12/09/19 11:12 BEE STINGS Allergy Unknown Uncoded 12/09/19 11:12 Cough Clinic Triage - Symptoms Fever History: Yes Chills: Yes Myalgia: Yes Nasal Drainage: Yes Sore Throat: No Productive Cough: Yes Non-productive Cough: No Ear or Sinus Pain: No Joint Pain: No Chest Pain: No Rash: No Shortness of Breath: No Nausea or Vomitting: No Headache: No Abdominal Pain: No Diarrhea: No - Exposure History Foreign Travel: No Direct Contact with COVID-19 Patient: No - Risk Factors Greater than 60 Years Old: Yes COPD: No Diabetes: Yes Heart Disease: Yes Home Oxygen Use: No Chronic Renal Disease: No Chronic Liver Disease: No Neurologic/Neurodevelopmental/intellectual disability: No Other Chronic Diseases: No Current Smoker: No Former Smoker: Yes Cough Clinic History I have reviewed the patient's past medical history: Yes Medical History: Reports:: Coronary Artery Disease, Diabetes Mellitus Type 2, Hyperlipidemia, Hypertension Denies:: Cancer, Diabetes Mellitus Type 1, Internal Pacemaker, MRSA Other Medical History: Reports: Arthritis Comment: Nonhealing wound on the left cohen, treated in 2013 with antibiotics. Cultured and found to be non-staph, breaks open occasionally. Patient denies history of diabetes Laterality Cases: Left: Arthroscopy Knee, Bilateral: Tonsillectomy Other Surgeries: Yes: Cardiac Catheterization (05/29/18 5 stents). No: Pacemaker Amputation: No Fractures: Yes - Social History Smoking Status: Former smoker Tobacco Type: cigarettes #Yrs smoked (if former smoker): 1 Alcohol Intake: current Alcohol Intake Frequency:: holidays/special occasions only Substance Use Type: denies use Occupational Status: retired Housing: house Household Members: spouse Family Hx:: Cancer, Coronary Artery Disease, Heart Attack, Hyperlipidemia, Hypertension, Stroke, Thyroid Disorder ROS Obtained: Yes All systems reviewed & no additional complaints Cough Clinic Exam - General General appearance: alert, in no apparent distress - Head Head exam: atraumatic, normocephalic, normal inspection - Eye Eye exam: Present: normal appearance, PERRL, EOMI - ENT ENT exam: Present: normal exam, normal oropharynx, mucous membranes moist, TM's normal bilaterally, normal external ear exam - Neck Neck exam: Present: normal inspection, full ROM, trachea midline. Absent: meningismus, lymphadenopathy - Chest Chest inspection: Present: normal inspection, symmetric chest wall rise. Absent: tenderness - Respiratory Respiratory exam: Present: normal lung sounds bilaterally.
[2020-01-28 14:41] LABS: Lymphocytes # 0.6 K/mm3 (0.7-4.5); Monocytes # 1.3 K/mm3 (0.1-1.0); Neutrophils # 14.4 K/mm3 (1.8-7.8)
[2020-01-28 14:43] LABS: MANUAL DIFFERENTIAL MANUAL DIFFERENTIAL (MANUAL DIFF)
--- NOTE | 2020-01-28 14:45 | XR_ITS ---
PROCEDURE: XR CHEST PORTABLE CLINICAL HISTORY: cough/respiratory symptoms COMPARISON: CXR1VP XR chest portable from 05/29/2018 FINDINGS: The cardiomediastinal silhouette and pulmonary vascularity are within normal limits. The lungs are clear without infiltrates, suspicious nodules, or pleural effusions. No acute bony abnormalities. There is an azygos fissure is a normal variant IMPRESSION: No acute findings. Dictated by: Juan Harris MD 01/28/2020 15:16 Electronically signed by Juan Harris MD in [place] 01/28/2020 15:16
[2020-01-28 15:28] VITALS: BP 121/61; PULSE 80; RESP 20; TEMP 36.9; O2SAT 97
[2020-01-28 16:24] LABS: Lymphocytes % 4 % (10-50); Monocytes % 3 % (2-9); Neutrophils % 89 % (42-76); Total Cells Counted 100
[2020-01-28 16:25] LABS: Platelet Estimate Normal; RBC Morphology Normal
== END 2020-01-28 15:28 | disposition home or self-care (01) ==
PROVIDERS: Emergency Provider Family Medicine; PCP Family Medicine
DX: J06.9 Acute upper respiratory infection, unspecified (principal); D72.829 Elevated white blood cell count, unspecified; Z87.891 Personal history of nicotine dependence; E11.9 Type 2 diabetes mellitus without complications; I25.10 Atherosclerotic heart disease of native coronary artery without angina pectoris; I10 Essential (primary) hypertension; E78.5 Hyperlipidemia, unspecified; Z88.0 Allergy status to penicillin
CPT/HCPCS: G0463; 36415; 71045; 85007; 85025; 87275; 87276; 99201; 99213

== ENCOUNTER → 2020-03-10 15:50 | Outpatient (CLI) | payer MEDICARE, SELFPAY | PROVIDERS: Visit Provider Family Medicine | DX: L97.519 Non-pressure chronic ulcer of other part of right foot with unspecified severity (principal) | CPT/HCPCS: 87070; 87077; 87186; 87205 ==

== ENCOUNTER → 2020-03-16 07:33 | Outpatient (CLI) | payer MEDICARE, SELFPAY ==
--- NOTE | 2020-03-16 07:37 | US_ITS ---
APPROVED REPORT Exam Type: Lower Extremity Segmental Pressures Web Applications Administrator: Jena Joyner RVT Indications Non-healing Ulcer: Right Edema History of Smoking CAD ULCER RT FOOT Risk Factors Hypertension Hyperlipidemia Obesity Cardiac Disease Diabetes History of Smoking Pressures/Indices Right Indices Left Indices Brachial 147.00 mmHg Brachial 142.00 mmHg Low Thigh 172.00 mmHg 1.17 Low Thigh 173.00 mmHg 1.18 Calf 199.00 mmHg 1.35 Calf 184.00 mmHg 1.25 Ankle(PT) 192.00 mmHg 1.31 Ankle(PT) 195.00 mmHg 1.33 Ankle(DP) 159.00 mmHg 1.08 Ankle(DP) 201.00 mmHg 1.37 Digit 130.00 mmHg 0.88 Digit 162.00 mmHg 1.10 Findings RT DAQUAN:1.31 LT DAQUAN:1.33 RT TBI:0.88 LT TBI:1.10 NORMAL WAVEFORMS BILATERAL ARRYTHMIA NOTED, NORMAL PULSES Conclusion RT DAQUAN:1.31 LT DAQUAN:1.33 RT TBI:0.88 LT TBI:1.10 NORMAL WAVEFORMS BILATERAL ARRYTHMIA NOTED, NORMAL PULSES Slightly elevated DAQUAN suggesting vessel hardening from PVD Electronically signed by : Juan Harris MD 03/16/2020 16:20:50
--- NOTE | 2020-03-16 08:10 | MR_ITS ---
PROCEDURE: MR FOOT RT WO CON CLINICAL INDICATION: TOE PAIN, TOE ULCER, OSTEOMYELITIS Redness and swelling of the great toe with swelling extending to the lower leg, MRSA COMPARISON: No exams were available for comparison TECHNIQUE: Routine multiplanar multi echo sequences are performed without gadolinium enhancement. FINDINGS: There is mild subcutaneous edema involving the great toe. There is no convincing evidence of osteomyelitis. No abnormal bone marrow signal intensity is present at this region. There is mild dorsal subcutaneous edema of the foot. Small amount fluid is present at the dorsal aspect of the 1st metatarsophalangeal joint. No obvious abscess. No drainable fluid collections. No obvious fracture or dislocation. There are minimal osteoarthritic changes of the talonavicular and navicular cuneiform joint. No obvious ligamentous or tendinous abnormalities. There is some fluid present along the flexor hallucis longus tendon in the arch of the foot which may be related to tendinitis. IMPRESSION: 1. No convincing evidence of osteomyelitis or abscess. 2. Mild subcutaneous edema along the great toe suggesting cellulitis 3. Fluid present along the flexor hallucis longus tendon suggesting tendinitis Dictated by: Juan Harris MD 03/16/2020 11:11 Electronically signed by Juan Harris MD in [place] 03/16/2020 11:11
== END ==
PROVIDERS: PCP Family Medicine; Visit Provider Family Medicine
DX: R09.89 Other specified symptoms and signs involving the circulatory and respiratory systems (principal)
CPT/HCPCS: 73718; 93923

== ENCOUNTER → 2020-03-16 17:57 | Outpatient (CLI) | payer MEDICARE, SELFPAY | PROVIDERS: Visit Provider Podiatrist | DX: Z51.89 Encounter for other specified aftercare (principal); L03.115 Cellulitis of right lower limb; L97.511 Non-pressure chronic ulcer of other part of right foot limited to breakdown of skin | CPT/HCPCS: 73718; 87070; 87077; 87186; 87205; 93923 ==

== ENCOUNTER 2020-03-19 09:00 | Outpatient (RCR) | payer MEDICARE, SELFPAY | END 2020-03-19 09:05 | disposition home or self-care (01) | LOC: PT 09:00 | PROVIDERS: PCP Family Medicine; Visit Provider Family Medicine | DX: L03.115 Cellulitis of right lower limb (principal) | CPT/HCPCS: 29580; 97140; 97161; 97164; 97597; 97598 ==

== ENCOUNTER → 2020-03-23 11:37 | Outpatient (CLI) | payer MEDICARE, SELFPAY ==
[2020-03-23 12:00] LABS: Basophils # 0.1 K/mm3 (0-0.2); Basophils % 0.7 % (0.1-2.0); Eosinophils # 0.4 K/mm3 (0.0-0.4); Eosinophils % 5.9 % (0.1-12.0); Hematocrit 39.4 % (42.0-52.0); Hemoglobin 13.6 g/dL (14.1-18.0); Lymphocytes # 2.3 K/mm3 (0.7-4.5); Lymphocytes % 32.9 % (10-50); Mean Corpuscular HGB Conc 34.4 g/dL (31.8-35.4); Mean Corpuscular Hemoglobin 29.7 pg (27.0-31.2); Mean Corpuscular Volume 86.2 fl (80-94); Mean Platelet Volume 6.9 fl (7.4-10.4); Monocytes # 0.3 K/mm3 (0.1-1.0); Neutrophils # 3.8 K/mm3 (1.8-7.8); Neutrophils % 55.5 % (37.0-80.0); Platelet Count 232 K/mm3 (142-424); Red Blood Count 4.57 M/mm3 (4.60-6.20); Red Cell Distribution Width 14.3 % (11.5-17.5); White Blood Count 6.9 K/mm3 (4.8-10.8)
[2020-03-23 12:49] LABS: Erythrocyte Sedimentation Rate 22 mm/hr (0-20)
[2020-03-23 13:39] LABS: C-Reactive Protein 0.5 mg/L (0-4)
== END ==
PROVIDERS: Visit Provider Podiatrist
DX: L03.115 Cellulitis of right lower limb (principal); L97.511 Non-pressure chronic ulcer of other part of right foot limited to breakdown of skin; Z22.322 Carrier or suspected carrier of Methicillin resistant Staphylococcus aureus; L97.911 Non-pressure chronic ulcer of unspecified part of right lower leg limited to breakdown of skin
CPT/HCPCS: 36415; 85025; 85651; 86140

== ENCOUNTER → 2020-05-05 17:18 | Outpatient (CLI) | payer MEDICARE, SELFPAY | PROVIDERS: Visit Provider Podiatrist | DX: Z51.89 Encounter for other specified aftercare (principal) | CPT/HCPCS: 87070; 87077; 87186; 87205 ==

== ENCOUNTER 2021-07-13 10:00 | Outpatient (RCR) | payer MEDICARE, SELFPAY | END 2021-07-13 10:05 | disposition home or self-care (01) | LOC: PT 10:00 | PROVIDERS: Visit Provider Family Medicine | DX: M79.661 Pain in right lower leg (principal); L97.511 Non-pressure chronic ulcer of other part of right foot limited to breakdown of skin | CPT/HCPCS: 29580; 97140; 97162; 97597; 97760 ==

== ENCOUNTER 2023-03-12 18:14 | Emergency (ER) | payer MEDICARE, SELFPAY ==
[2023-03-12] VITALS (11 sets, daily range): BP systolic 147–180; BP diastolic 60–98; PULSE 50–64; RESP 18–19; TEMP 36.3–36.9; O2SAT 95–100; BMI 32.0
[2023-03-12 18:29] LABS: POC Glucose,Bedside 98 (70-110)
--- NOTE | 2023-03-12 18:31 | ECG_ITS ---
APPROVED REPORT Exam: Resting ECG HR:50 bpm ECG Measurements Heart Rate 50 AXES CO 175 P 11 QRSd 116 QRS 2 QT 453 T 43 QTc 425 Conclusion SINUS BRADYCARDIA WITH OCCASIONAL SUPRAVENTRICULAR PREMATURE COMPLEXES MODERATE INTRAVENTRICULAR CONDUCTION DELAY [110+ ms QRS DURATION] BORDERLINE ECG UNCONFIRMED REPORT Electronically signed by : Owen Swanson MD 03/14/2023 17:33:01
--- NOTE | 2023-03-12 18:51 | PC.NURSE ---
pt aware that a urine sample is needed
[2023-03-12 18:56] LABS: Basophils % 0.3 % (0.1-2.0); Eosinophils # 0.3 K/mm3 (0.0-0.4); Eosinophils % 2.2 % (0.1-12.0); Hematocrit 47.5 % (42.0-52.0); Hemoglobin 15.2 g/dL (14.1-18.0); Lymphocytes # 2.6 K/mm3 (0.7-4.5); Lymphocytes % 22.2 % (10-50); Mean Corpuscular Hemoglobin 28.4 pg (27.0-31.2); Mean Corpuscular Volume 88.8 fl (80-94); Mean Platelet Volume 7.3 fl (7.4-10.4); Monocytes # 0.6 K/mm3 (0.1-1.0); Monocytes % 5.4 % (1.7-9.3); Neutrophils # 8.1 K/mm3 (1.8-7.8); Neutrophils % 69.9 % (37.0-80.0); Platelet Count 268 K/mm3 (142-424); Red Blood Count 5.34 M/mm3 (4.60-6.20); Red Cell Distribution Width 13.8 % (11.5-17.5); White Blood Count 11.5 K/mm3 (4.8-10.8)
--- NOTE | 2023-03-12 18:57 | HMH.EDGENADL ---
Discharge Plan Disposition Patient Disposition: Xfer Short-Term Hosp Chief Complaint: Abdominal Pain Prescriptions Prescriptions: No Action omega-3 fatty acids [Fish Oil Concentrate] 1,000 mg capsule 1,000 mg PO BID coenzyme Q10 [Co Q-10] 100 mg capsule 200 mg PO BID ergocalciferol (vitamin D2) 1,250 mcg (50,000 unit) capsule 1,250 mcg PO WEEKLY losartan 25 mg tablet 25 mg PO DAILY atorvastatin 40 MG tablet 40 mg PO HS metformin 1,000 MG tablet 1,000 mg PO BID aspirin 81 MG tablet,chewable 81 mg PO DAILY clopidogrel 75 mg tablet 75 mg PO DAILY Referrals Follow up/Referrals: Wen Spence [Primary Care Provider] - See instructions Clinical Impressions Clinical Impression: Nausea & vomiting, Abdominal pain, Acute pancreatitis, Cholelithiasis Instructions Patient Instructions: DI for Acute Abdominal Pain Discharge ED Provider: Susu Terry General Adult HPI <Susu Terry MD - Last Filed: 03/12/23 19:12> General Chief complaint: Abdominal Pain Stated complaint: vomiting, abd pain Time Seen by Provider: 03/12/23 18:57 Mode of Arrival: Ambulatory Source of Information: Patient Limitations: No Limitations Description of Symptoms (Recalled from ER Triage Doc. by RN): c/o upper gastric pain with vomiting after 30 minutes or so after eating. Pt states that he has been very diaphortic. Glucose 98. History of Present Illness HPI narrative: Patient is a 67-year-old male who presents today with epigastric and periumbilical abdominal pain has been going on for the last week. He states this has been somewhat postprandial in nature however its been constant throughout this week. States that he has had multiple episodes of nausea vomiting but no diarrhea. No history of a cholecystectomy. He did state he has had some right upper quadrant abdominal pain but not at the moment localized in the midline for the most part. Pain is moderate to severe. No chest pain or shortness of breath. Related Data Home Medications Medication Instructions Recorded Confirmed omega-3 fatty acids 1,000 mg 1,000 mg PO BID supplkement 08/21/18 03/12/23 capsule (Fish Oil Concentrate) coenzyme Q10 100 mg capsule (Co 200 mg PO BID Supplement 06/04/19 03/12/23 Q-10) aspirin 81 mg chewable tablet 81 mg PO DAILY heart. 01/28/20 03/12/23 atorvastatin 40 mg tablet 40 mg PO HS Cholesterol 01/28/20 03/12/23 metformin 1,000 mg tablet 1,000 mg PO BID Diabetes 01/28/20 03/12/23 ergocalciferol (vitamin D2) 1,250 1,250 mcg PO WEEKLY Supplement 11/10/20 03/12/23 mcg (50,000 unit) capsule losartan 25 mg tablet 25 mg PO DAILY High blood pressure 05/10/21 03/12/23 clopidogrel 75 mg tablet 75 mg PO DAILY Blood thinner 03/12/23 03/12/23 Allergies Allergy/AdvReac Type Severity Reaction Status Date / Time penicillin G [PENICILLIN G] Allergy Unknown Verified 05/10/21 10:02 BEE STINGS Allergy Unknown Uncoded 05/10/21 10:02 PFSH <Susu Terry MD - Last Filed: 03/12/23 19:12> [facility] Disclaimer: The information contained in this section may have been updated after the patient was seen, as this information can be updated by other users. Medical History (Updated 03/12/23 @ 21:25 by Koffi Otero (ED)MD) Abnormal liver enzymes Bradycardia CAD (coronary artery disease) HHD (hypertensive heart disease) HLD (hyperlipidemia) Surgical History S/P coronary artery stent placement Social History Smoking Status: Never smoker second hand exposure: No alcohol intake: current substance use type: denies use current occupational status: retired Travel in the last 8 weeks: Inside the [place] household members: spouse housing: house current occupational exposures/hazards: No caffeine: Yes (coffee) <Susu Terry MD - Last Filed: 03/12/23 19:12> ROS Cecilia
[2023-03-12 19:04] LABS: Lactic Acid 1.7 mmol/L (0.7-2.1)
[2023-03-12 19:05] LABS: Alanine Aminotransferase 28 U/L (12-78); Albumin Level 4.6 g/dl (3.5-5.0); Albumin/Globulin Ratio 1.5 (1.1-1.8); Alkaline Phosphatase 109 U/L (38-126); Anion Gap 15.7 mEq/L (5-15); Aspartate Amino Transferase 48 U/L (17-59); Blood Urea Nitrogen 15 mg/dl (9-20); Calcium 9.8 mg/dl (8.4-10.2); Carbon Dioxide 28 mmol/L (22.0-30.0); Chloride 100 mmol/L (98-107); Creatinine Clearance Estimated 98 mL/min (50-200); Estimated Glomerular Filt Rate 96 ml/min (>60); GFR (African American) 116 ML/MIN (>60); Glucose 142 mg/dl (74-100); Potassium 3.7 mmoL/L (3.5-5.1); Sodium 140 mmol/L (136-145); Total Protein,Serum 7.6 g/dl (6.3-8.2)
--- NOTE | 2023-03-12 19:08 | CT_ITS ---
PROCEDURE INFORMATION: Exam: CT Abdomen And Pelvis With Contrast Exam date and time: 03/12/2023 7:20 PM Age: 67 years old Clinical indication: Abdominal pain; Additional info: Epigastric and periumbilical abd pain n/v TECHNIQUE: Imaging protocol: Computed tomography of the abdomen and pelvis with contrast. Radiation optimization: All CT scans at this facility use at least one of these dose optimization techniques: automated exposure control; mA and/or kV adjustment per patient size (includes targeted exams where dose is matched to clinical indication); or iterative reconstruction. Contrast material: ISOVUE; Contrast volume: 75 ml; Contrast route: IV; REPORTING DATA: Count of CT and Cardiac NM exams in prior 12 months: This patient has received 0 known CTs and 0 known cardiac nuclear medicine studies in the 12 months prior to the current study. COMPARISON: SCROTUM US scrotum 10/19/2018 11:10 AM FINDINGS: Coronary arteries: Dense coronary artery calcifications are noted. Liver: Normal. No mass. Gallbladder and bile ducts: Layering tiny gallstones are noted in the gallbladder lumen. No significant gallbladder wall thickening. Pancreas: There is diffuse pancreatic edema and peripancreatic fluid compatible with acute pancreatitis. Pancreatic enhancement appears normal. Spleen: Normal. No splenomegaly. Adrenal glands: Normal. No mass. Kidneys and ureters: Normal. No hydronephrosis. Stomach and bowel: There is moderate wall thickening of the duodenum, likely related to acute pancreatitis. No evidence of bowel obstruction. Appendix: The appendix is visualized and appears normal. Intraperitoneal space: No other significant free fluid or free air. No loculated fluid collections in the abdomen or pelvis. Vasculature: Unremarkable. No abdominal aortic aneurysm. Lymph nodes: Unremarkable. No enlarged lymph nodes. Urinary bladder: Unremarkable as visualized. Reproductive: Unremarkable as visualized. Bones/joints: Moderate degenerative changes noted throughout the mid to lower spine. Mild degenerative changes noted in the bony pelvis. No vertebral body compression or acute fracture. Soft tissues: Unremarkable. IMPRESSION: Findings of acute pancreatitis and cholelithiasis.
[2023-03-12 19:27] LABS: Amylase 3760 U/L (30-110)
[2023-03-12 19:46] LABS: Coronavirus 19, PCR Not Detected (NotDetected); Influenza A, PCR Not Detected (NotDetected); Influenza B, PCR Not Detected (NotDetected)
--- NOTE | 2023-03-12 19:49 | PC.NURSE ---
Dr. Terry at [facility] to update pt/family
--- NOTE | 2023-03-12 19:58 | PC.NURSE ---
paged dr Watts at this time
--- NOTE | 2023-03-12 19:59 | PC.NURSE ---
ER speaking with Dr Watts at this time
--- NOTE | 2023-03-12 20:05 | PC.NURSE ---
Spoke with [facility] bed placement. Advised they would call back when the hospitalist is available.
--- NOTE | 2023-03-12 20:06 | PC.NURSE ---
Called RAD for disc
--- NOTE | 2023-03-12 20:12 | PC.NURSE ---
Pt advised he is still unable to provide urine sample
--- NOTE | 2023-03-12 20:23 | PC.NURSE ---
Dr. Otero speaking with hospitalist at
--- NOTE | 2023-03-12 20:26 | PC.NURSE ---
Pt placed on wait list at by Dr. Guzman
--- NOTE | 2023-03-12 20:41 | PC.NURSE ---
Waiting for call back from [facility]. Had [facility] power share images to [facility].
--- NOTE | 2023-03-12 20:44 | PC.NURSE ---
Spoke with Nataliia with [facility], advised they would call back when they have a hospitalist
--- NOTE | 2023-03-12 20:51 | PC.NURSE ---
Dr. Otero speaking with Dr. Dhaliwal at [facility]
--- NOTE | 2023-03-12 20:54 | PC.NURSE ---
Pt accepted at [facility] by Dr. Dhaliwal
--- NOTE | 2023-03-12 21:08 | PC.NURSE ---
Received bed assignment 3A. Face sheet faxed to [facility].
--- NOTE | 2023-03-12 21:11 | PC.NURSE ---
Attempted to call report to [phone], but nurse was not available. Will call us back
[2023-03-12 21:12] LABS: Appearance,Urine CLEAR (Clear); Bilirubin,Urine Negative (Negative); Blood, Urine Negative (Negative); Color,Urine YELLOW (Yellow); Glucose,Urine (UA) Negative (Negative); Ketones,Urine 1+ (Negative); Leukocyte Esterase,Urine Negative (Negative); Microscopic, Urine URINE MICROSCOPIC (MICROSCOPIC); Nitrate,Urine Negative (Negative); PH,Urine 5.5 (5.0-8.5); Protein,Urine Negative (Negative); Specific Gravity, Urine 1.015 (1.005-1.030)
[2023-03-12 21:29] LABS: Bacteria,Urine Trace /lpf; Mucus,Urine Trace /lpf; Squamous Epithelial Cell,Urine Occasional #/hpf (0-5)
--- NOTE | 2023-03-12 21:38 | PC.NURSE ---
Silvana Lynch RN called report to Bessy RAMIREZ
--- NOTE | 2023-03-12 22:03 | PC.NURSE ---
EMS here to transfer pt, giving report
== END 2023-03-12 22:22 | disposition short-term general hospital (02) ==
PROVIDERS: Student in an Organized Health Care Education/Training Program; Emergency Provider Emergency Medicine; PCP Family Medicine
DX: K85.90 Acute pancreatitis without necrosis or infection, unspecified (principal); R10.13 Epigastric pain
CPT/HCPCS: 74177; 80053; 81001; 82150; 82962; 83605; 83690; 85025; 87636; 93005; 96361; 96374; 96375; 96376; 99285; C9803; J2405; Q9967; U0003; U0005

== ENCOUNTER → 2023-03-23 07:36 | Outpatient (CLI) | payer MEDICARE, SELFPAY ==
--- NOTE | 2023-03-23 07:36 | US_ITS ---
FINAL REPORT TECHNIQUE: Ultrasound images of the abdomen were obtained. CLINICAL HISTORY: adbominal pain COMPARISON: None FINDINGS: ABDOMINAL ULTRASOUND COMPLETE: There are diffuse fatty changes in the liver without focal mass. There are numerous tiny gallstones without acute gallbladder disease. The common duct is normal. The right kidney measures 10.8 cm in length and is normal in echogenicity without hydronephrosis. The left kidney measures 12.2 cm in length and is normal in echogenicity without hydronephrosis. The spleen is unremarkable. The pancreas is obscured by overlying bowel gas. The visualized portions of the aorta and the IVC are normal. The vena cava is unremarkable. IMPRESSION: Cholelithiasis. Fatty liver. Reviewed, Interpreted and Dictated by Melly Moore MD Transcribed by Lulú Mendez Authenticated and [facility]
== END ==
LOC: RAD 07:36
PROVIDERS: PCP Family Medicine; Visit Provider Surgery
DX: K80.20 Calculus of gallbladder without cholecystitis without obstruction (principal); K85.90 Acute pancreatitis without necrosis or infection, unspecified; R10.9 Unspecified abdominal pain
CPT/HCPCS: 76700

== ENCOUNTER → 2023-04-06 10:01 | Outpatient (CLI) | payer MEDICARE, SELFPAY | LOC: RT 10:01 | PROVIDERS: PCP Family Medicine; Visit Provider Nurse Practitioner | DX: I11.9 Hypertensive heart disease without heart failure (principal); I25.10 Atherosclerotic heart disease of native coronary artery without angina pectoris; Z01.810 Encounter for preprocedural cardiovascular examination | CPT/HCPCS: 93306 ==

== ENCOUNTER 2023-05-23 05:24 | Inpatient (IN) | payer MEDICARE, SELFPAY ==
[2023-05-23] VITALS (12 sets, daily range): BP systolic 125–154; BP diastolic 64–78; PULSE 45–63; RESP 16–20; TEMP 36.4–36.8; O2SAT 90–99; BMI 30.2; BMI 30.7
--- NOTE | 2023-05-23 05:28 | PC.NURSE ---
Requested urine sample upon arrival. Pt advised he could not provide one at this time.
--- NOTE | 2023-05-23 05:32 | ECG_ITS ---
APPROVED REPORT Exam: Resting ECG HR:45 bpm ECG Measurements Heart Rate 45 AXES QRSd 114 QRS -6 QT 462 T 43 QTc 417 Conclusion SINUS BRADYCARDIA WITH 2ND DEGREE AV BLOCK, 2:1 OR MOBITZ TYPE II MODERATE INTRAVENTRICULAR CONDUCTION DELAY [105+ ms QRS DURATION, 80+ ms Q/S IN V1/V2, NO Q AND 60+ ms R IN I/aVL/V5/V6] CRITICAL TEST RESULT UNCONFIRMED REPORT Electronically signed by : Owen Swanson MD 05/23/2023 20:47:10
--- NOTE | 2023-05-23 05:39 | CT_ITS ---
PROCEDURE INFORMATION: Exam: CT Abdomen And Pelvis With Contrast Exam date and time: 05/23/2023 6:27 AM Age: 68 years old Clinical indication: Abdominal pain; Localized; Right upper quadrant (ruq); Additional info: Ruq/epigastric pain, h/o gallstones TECHNIQUE: Imaging protocol: Computed tomography of the abdomen and pelvis with contrast. Radiation optimization: All CT scans at this facility use at least one of these dose optimization techniques: automated exposure control; mA and/or kV adjustment per patient size (includes targeted exams where dose is matched to clinical indication); or iterative reconstruction. Contrast material: ISOVUE; Contrast volume: 75 ml; Contrast route: IV; REPORTING DATA: Count of CT and Cardiac NM exams in prior 12 months: This patient has received [address] and 0 known cardiac nuclear medicine studies in the 12 months prior to the current study. COMPARISON: CT ABDOMEN PELVIS W CON 03/12/2023 7:20 PM FINDINGS: Coronary arteries: There are coronary artery calcifications. Diaphragm: There is a small hiatal hernia. Liver: Normal. No mass. Gallbladder and bile ducts: There are numerous gallstones re-identified. Pancreas: There is enlargement of the pancreatic head and uncinate process. There is focal peripancreatic fluid and edema consistent with acute pancreatitis, findings which may have slightly progressed. There are a few calcifications in the pancreatic tail most consistent with chronic pancreatitis. Spleen: Normal. No splenomegaly. Adrenal glands: Normal. No mass. Kidneys and ureters: Normal. No hydronephrosis. Stomach and bowel: There is thickening of the wall of the duodenum consistent with the adjacent inflammatory change. There is a moderate of stool in the nondilated colon. Appendix: No evidence of appendicitis. Intraperitoneal space: No free air. Vasculature: No abdominal aortic aneurysm. Lymph nodes: No enlarged lymph nodes. Urinary bladder: Unremarkable as visualized. Reproductive: Unremarkable as visualized. Bones/joints: There are degenerative changes of the spine Soft tissues: Unremarkable. IMPRESSION: 1. Recurrent acute pancreatitis 2. Gallstones.
--- NOTE | 2023-05-23 05:39 | HMH.EDGENADL ---
Discharge Plan Disposition Patient Disposition: Still a Patient Condition: Fair Prescriptions Prescriptions: No Action coenzyme Q10 [Co Q-10] 100 mg capsule 100 mg PO DAILY losartan 25 mg tablet 25 mg PO DAILY atorvastatin 40 MG tablet 40 mg PO HS metformin 1,000 MG tablet 1,000 mg PO BID aspirin 81 MG tablet,chewable 81 mg PO DAILY Referrals Follow up/Referrals: Wen Spence [Primary Care Provider] - See instructions Clinical Impressions Clinical Impression: Abdominal pain, epigastric Calculous cholecystitis Qualifiers: Cholecystitis acuity: chronic Instructions Patient Instructions: DI for Acute Abdominal Pain Discharge ED Provider: Keisha Verma General Adult HPI General Chief complaint: Abdominal Pain Stated complaint: Abd pain Time Seen by Provider: 05/23/23 05:26 History of Present Illness HPI narrative: This patient is a 68-year-old male with a history of obesity, CAD with NSTEMI status post stenting, known bradycardia, hypertension, hypertensive heart disease, hyperlipidemia, type 2 diabetes, and recent admission for gallstone pancreatitis presenting to the emergency department for evaluation with concern for epigastric pain, nausea, and vomiting that started tonight. He was evaluated at the end of February here on medical record review for similar symptoms and was diagnosed with gallstone pancreatitis. He was transferred to outside facility, where he reports that he did not undergo ERCP because his symptoms resolved on their own. He did not undergo cholecystectomy, as he was awaiting cardiology clearance. He has now had cardiology clearance but is awaiting surgical appointment. He states that he had been doing fairly well since this previous admission until tonight. Nothing seems to make symptoms better or worse. No fevers, shortness of breath, changes in bowel movements, or other concerns noted at this time. Related Data Home Medications Medication Instructions Recorded Confirmed aspirin 81 mg chewable tablet 81 mg PO DAILY heart. 01/28/20 05/23/23 atorvastatin 40 mg tablet 40 mg PO HS Cholesterol 01/28/20 05/23/23 metformin 1,000 mg tablet 1,000 mg PO BID Diabetes 01/28/20 05/23/23 losartan 25 mg tablet 25 mg PO DAILY High blood pressure 05/10/21 05/23/23 coenzyme Q10 100 mg capsule (Co 100 mg PO DAILY joint pain 03/22/23 05/23/23 Q-10) Allergies Allergy/AdvReac Type Severity Reaction Status Date / Time penicillin G [PENICILLIN G] Allergy Unknown Verified 03/22/23 13:22 BEE STINGS Allergy Unknown Uncoded 03/22/23 13:22 [facility] Disclaimer: The information contained in this section may have been updated after the patient was seen, as this information can be updated by other users. Medical History Abnormal liver enzymes Bradycardia CAD (coronary artery disease) HHD (hypertensive heart disease) HLD (hyperlipidemia) Surgical History S/P coronary artery stent placement Social History Smoking Status: Never smoker second hand exposure: No alcohol intake: current substance use type: denies use current occupational status: retired Travel in the last 8 weeks: Inside the [place] household members: spouse housing: house current occupational exposures/hazards: No caffeine: Yes (coffee) ROS Obtained: Yes All systems reviewed & no additional complaints except as documented Physical Exam General General appearance: alert and obese Comment: Uncomfortable appearing, diaphoretic, retching Head Head exam: atraumatic and normocephalic Eye Eye exam: Present normal appearance, PERRL and EOMI ENT ENT exam: Present normal exam, normal oropharynx and mucous membranes moist Neck Neck exam: Present normal inspection, full ROM and trachea midline; Absent tendernes
[2023-05-23 05:52] LABS: Basophils % 0.3 % (0.1-2.0); Eosinophils # 0.3 K/mm3 (0.0-0.4); Eosinophils % 2.1 % (0.1-12.0); Hemoglobin 14.1 g/dL (14.1-18.0); Lymphocytes # 2.7 K/mm3 (0.7-4.5); Lymphocytes % 22.4 % (10-50); Mean Corpuscular HGB Conc 32.1 g/dL (31.8-35.4); Mean Corpuscular Hemoglobin 28.2 pg (27.0-31.2); Mean Corpuscular Volume 87.9 fl (80-94); Mean Platelet Volume 7.8 fl (7.4-10.4); Monocytes # 0.6 K/mm3 (0.1-1.0); Monocytes % 5.4 % (1.7-9.3); Neutrophils # 8.3 K/mm3 (1.8-7.8); Neutrophils % 69.7 % (37.0-80.0); Platelet Count 275 K/mm3 (142-424); Red Blood Count 5.01 M/mm3 (4.60-6.20); Red Cell Distribution Width 14.1 % (11.5-17.5); White Blood Count 11.9 K/mm3 (4.8-10.8)
--- NOTE | 2023-05-23 05:55 | PC.NURSE ---
advises pt has hx of bradycardia and normally runs in the 40's-50's. Notified MD that this is normal for pt.
[2023-05-23 05:57] LABS: Alanine Aminotransferase 20 U/L (12-78); Albumin Level 4.4 g/dl (3.5-5.0); Albumin/Globulin Ratio 1.5 (1.1-1.8); Alkaline Phosphatase 103 U/L (38-126); Anion Gap 11.7 mEq/L (5-15); Aspartate Amino Transferase 27 U/L (17-59); Bilirubin,Total 1.8 mg/dl (0.2-1.3); Blood Urea Nitrogen 17 mg/dl (9-20); Calcium 9.8 mg/dl (8.4-10.2); Carbon Dioxide 27 mmol/L (22.0-30.0); Chloride 105 mmol/L (98-107); Creatinine Clearance Estimated 90 mL/min (50-200); Estimated Glomerular Filt Rate 96 ml/min (>60); GFR (African American) 116 ML/MIN (>60); Globulin 2.9 g/dL (1.3-3.2); Glucose 192 mg/dl (74-100); Lactic Acid 1.7 mmol/L (0.7-2.1); Potassium 3.7 mmoL/L (3.5-5.1); Sodium 140 mmol/L (136-145); Total Protein,Serum 7.3 g/dl (6.3-8.2)
[2023-05-23 06:12] LABS: Troponin I < 0.01 ng/ml (0.00-0.034)
--- NOTE | 2023-05-23 06:32 | PC.NURSE ---
Pt returned from CT
--- NOTE | 2023-05-23 06:57 | PC.NURSE ---
Rounded on pt at this time. No new needs, pt resting in bed
--- NOTE | 2023-05-23 07:08 | PC.NURSE ---
Called lab to check on lipase results, advised they were in the process of diluting it to be ran. Notified
--- NOTE | 2023-05-23 07:22 | PC.NURSE ---
report given during shift change huddle
--- NOTE | 2023-05-23 07:32 | PC.NURSE ---
rounded on pt at this time. no needs voiced. updated on POC.
[2023-05-23 07:46] LABS: Lipase 47835 U/L (23-300)
--- NOTE | 2023-05-23 07:47 | PC.NURSE ---
aware of lipase results
--- NOTE | 2023-05-23 07:49 | PC.NURSE ---
Dr. Terry s/w Dr. Head
--- NOTE | 2023-05-23 08:16 | PC.NURSE ---
Dr. Terry at bedside
--- NOTE | 2023-05-23 08:17 | EXP.SURG.CON ---
History of Present Illness *Admission Date: 05/23/23 *Reason for visit:: Abdominal pain *History of present illness: Patient is a 68-year-old male who has a history of apparent biliary pancreatitis. He had presented to the emergency department on 03/12/2023 with acute upper abdominal pain. At that time blood work revealed amylase of 3760, lipase 48,791, bilirubin 3.0. CT scan revealed findings of acute pancreatitis and cholelithiasis with multiple small layering gallstones. Patient was transferred to [facility] in [place]. He apparently had several days hospitalization and the exact details are unknown. He was treated without intervention for presumed biliary pancreatitis. I have obtained the discharge summary from that hospitalization and he was managed without intervention from 03/12/2023 to 03/15/2023. Gastroenterology was consulted. He did not undergo ERCP or MRCP. I had seen the patient in the office recently on 03/21/2023 as an initial consultation for gallstones after referral from his primary care provider. I had felt that cholecystectomy would be warranted. He has a history of CAD, previous coronary stents, NSTEMI, HTN, Hyperlipidemia, Diabetes. Tentative plan for laparoscopic with possibly open cholecystectomy with possible cholangiogram after cardiology clearance. He did see cardiology as an outpatient and recommendations were for echocardiogram which was obtained ultimately revealing ejection fraction of 50 to 60% but there is no final risk stratification disposition. Patient presented to the emergency department this morning (05/23/23) due to acute onset epigastric pain, nausea, and projectile vomiting beginning at 4AM. Evaluation in the emergency department revealed bilirubin of 1.8. Transaminases and alkaline phosphatase are normal. Lipase 47,835. CT scan reveals findings of pancreatitis characterized by enlargement of the pancreatic head and uncinate process with focal peripancreatic fluid and edema. There are a few calcifications in the pancreatic tail consistent with chronic pancreatitis. Gallstones were identified. His white blood cell count is 11,900, glucose 192, AST 27, ALT 20. LDH 138. Amylase pending. Hematocrit 44%, BUN 17, calcium 9.8. [facility] Disclaimer: The information contained in this section may have been updated after the patient was seen, as this information can be updated by other users. Medical History Abnormal liver enzymes Bradycardia CAD (coronary artery disease) HHD (hypertensive heart disease) HLD (hyperlipidemia) Surgical History S/P coronary artery stent placement Social History Smoking Status: Never smoker second hand exposure: No alcohol intake: current substance use type: denies use current occupational status: retired Travel in the last 8 weeks: [place] the [place] household members: spouse housing: house current occupational exposures/hazards: No caffeine: Yes (coffee) Review of Systems Review of Systems Review of systems:: pertinent systems reviewed and negative unless documented below Meds Home Medications and Allergies Home Medications Medication Instructions Recorded Confirmed Type aspirin 81 mg chewable tablet 81 mg PO DAILY Heart Disease 01/28/20 05/23/23 History atorvastatin 40 mg tablet 40 mg PO HS Cholesterol 01/28/20 05/23/23 History metformin 1,000 mg tablet 1,000 mg PO BID Diabetes 01/28/20 05/23/23 History losartan 25 mg tablet 25 mg PO DAILY High blood pressure 05/10/21 05/23/23 History coenzyme Q10 100 mg capsule (Co 100 mg PO DAILY joint pain 03/22/23 05/23/23 History Q-10) clopidogrel 75 mg tablet 75 mg PO DAILY platelet inhibitor 05/23/23 05/23/23 History ergocalciferol (vitamin D2) 1,250 50,000 unit PO WEEKLY Supplement 05/23/23 05/23/23 History mcg (50,000 unit
--- NOTE | 2023-05-23 08:20 | PC.NURSE ---
speaking to hospitalist, dr taylor
--- NOTE | 2023-05-23 08:23 | US_ITS ---
FINAL REPORT CLINICAL HISTORY: pancreatitis, eval gallbladder and CBD COMPARISON: None FINDINGS: Sonographic images of the right upper quadrant were obtained. The pancreas is partially obscured. There is peripancreatic fluid, consistent with the clinical history of pancreatitis.The liver has an unremarkable appearance. Multiple gallstones are noted in the gallbladder, with wall thickening of the gallbladder wall to 7 mm. There is a small amount of pericholecystic fluid. There is no evidence of biliary ductal dilatation.The common duct measures 2 mm. Limited images of the right kidney are unremarkable. IMPRESSION: Peripancreatic fluid is present consistent with the clinical history of pancreatitis. Multiple gallstones present in the gallbladder, with gallbladder wall thickening to 7 mm and a small amount of pericholecystic fluid. No biliary ductal dilatation is seen. Reviewed, Interpreted and Dictated by Jameson Kauffman III, MD Transcribed by Kandy Deal Authenticated and . [facility]
--- NOTE | 2023-05-23 08:23 | PC.NURSE ---
spoke with care management for admission
--- NOTE | 2023-05-23 08:28 | PC.NURSE ---
Pt assigned to room 215 to the hospitalist (Clifton) for acute pancreatitis. Acute admit.
--- NOTE | 2023-05-23 08:44 | PC.NURSE ---
report called to ASHLEY gibbs
--- NOTE | 2023-05-23 09:06 | PC.NURSE ---
staff here to transfer pt to 2nd floor
--- NOTE | 2023-05-23 09:08 | PC.NURSE ---
pt to 2nd floor via wheelchair with FILI's
[2023-05-23 09:50] LABS: Troponin I < 0.01 ng/ml (0.00-0.034)
[2023-05-23 09:51] LABS: Lactate Dehydrogenase 138 U/L (313-618)
--- NOTE | 2023-05-23 10:07 | EXP.HP ---
History of Present Illness *Admission Date: 05/23/23 *Reason for visit:: Abdominal pain *History of present illness: Mr. Dennison is a 68-year-old male with history of gallbladder disease, previous pancreatitis, hypertension, diabetes, CAD. Presented to the ER with acute upper abdominal pain. Pain is in the epigastric region, radiates to the left upper abdomen. Also having nausea and vomiting. Denies any fever, chills, blood in vomit or stool. No trauma to his abdomen. Work-up in the ER initiated showing mild elevation in white cell count of 11,000, liver enzymes normal. LDH and amylase pending however lipase is severely elevated at almost 48,000. CT of his abdomen obtained showing pancreatitis with enlargement of the pancreatic head and uncinate process. Noted to have some peripancreatic fluid and edema. Some small calcifications in the pancreatic tail consistent with a chronic component to his pancreatitis. Gallbladder does have gallstones but does not appear to show any common bile duct dilatation. Surgery was consulted, they recommended admission for further management. ER consulted medicine for admission. After arriving to the floor, patient still having abdominal pain. Tolerating clear liquids however with no vomiting. Does have some mild nausea. Previously has been seen 3 months ago with similar presentation. Was transferred at that time to [facility] due to concern for acute pancreatitis and cholelithiasis. No ERCP was performed. There was plan to do a cholecystectomy with possible cholangiogram as an outpatient. This has not happened as of yet. Patient has seen cardiology however with clearance for possible surgical intervention. Family at bedside, updated of plan. [facility] Disclaimer: The information contained in this section may have been updated after the patient was seen, as this information can be updated by other users. Medical History Abnormal liver enzymes Bradycardia CAD (coronary artery disease) HHD (hypertensive heart disease) HLD (hyperlipidemia) Surgical History S/P coronary artery stent placement Social History Smoking Status: Never smoker second hand exposure: No alcohol intake: current substance use type: denies use current occupational status: retired Travel in the last 8 weeks: [place] the [place] household members: spouse housing: house current occupational exposures/hazards: No caffeine: Yes (coffee) Review of Systems Review of Systems Review of systems (narrative): 14 point review of systems performed, pertinent positives and negatives as per HPI Meds Home Medications and Allergies Home Medications Medication Instructions Recorded Confirmed Type aspirin 81 mg chewable tablet 81 mg PO DAILY Heart Disease 01/28/20 05/23/23 History atorvastatin 40 mg tablet 40 mg PO HS Cholesterol 01/28/20 05/23/23 History metformin 1,000 mg tablet 1,000 mg PO BID Diabetes 01/28/20 05/23/23 History losartan 25 mg tablet 25 mg PO DAILY High blood pressure 05/10/21 05/23/23 History coenzyme Q10 100 mg capsule (Co 100 mg PO DAILY joint pain 03/22/23 05/23/23 History Q-10) clopidogrel 75 mg tablet 75 mg PO DAILY platelet inhibitor 05/23/23 05/23/23 History ergocalciferol (vitamin D2) 1,250 50,000 unit PO WEEKLY Supplement 05/23/23 05/23/23 History mcg (50,000 unit) capsule (Vitamin D2) New Prescriptions to Start Prescriptions: Allergies Allergy/AdvReac Type Severity Reaction Status Date / Time penicillin G [PENICILLIN G] Allergy Unknown Verified 03/22/23 13:22 BEE STINGS Allergy Unknown Uncoded 03/22/23 13:22 Exam Data for Last 24 hours Vital signs and Labs for Last 24 Hours: Temp Pulse Resp BP Pulse Ox O2 Del Method 97.5 F L 53 L 20 125/64 95 Room Air 05/23/23 09:19 05/23/23 09:19
[2023-05-23 10:35] LABS: Hemoglobin A1C 5.9 % (4.0-6.0)
[2023-05-23 12:27] LABS: POC Glucose,Bedside 164 (70-110)
--- NOTE | 2023-05-23 16:02 | PC.NURSE ---
pt has c/o persistent mid abd pain, treated per dec. pt tolerated clears liquid diet well. while at rest the pt has no n/v. pt has vomited 3 times since arriving to floor, due to movement, from er to floor, to rad, and when ambulating to br. offered urinal but pt ref, states he would rather go to br even though it makes him sick. pt resting in bed well at this moment. cb w/i reach. at bedside. treated pts pain & n/v per dec. no needs or concerns at this time.
[2023-05-23 16:46] LABS: POC Glucose,Bedside 163 (70-110)
[2023-05-24] VITALS (7 sets, daily range): BP systolic 125–145; BP diastolic 62–78; PULSE 48–83; RESP 16–18; TEMP 36.2–38.1; O2SAT 97–99; BMI 31.5
--- NOTE | 2023-05-24 07:32 | PC.NURSE ---
lab called in regards to pt's lipase. lab to come and draw.
--- NOTE | 2023-05-24 07:38 | EXP.ACUTE.PN ---
Subjective *Date: 05/24/23 *Time: 17:01 Interval history: Patient states he is doing better. Still having some right upper quadrant pain but denies any nausea or vomiting. Tolerating clear liquid diet without difficulty. No shortness of breath or chest pain. Staying hydrated. Labs reviewed, kidney function stable. Liver enzymes normal except for bilirubin which is slightly increased. Medical Exam Vital signs and Labs for Last 24 Hours: Vital Signs Temp Pulse Pulse Resp BP BP Pulse Ox 05/24/23 07:00 05/24/23 05:00 05/24/23 04:00 100.6 F H 61 18 125/65 97 05/24/23 03:00 05/24/23 01:00 05/23/23 23:00 05/23/23 21:00 05/23/23 20:00 05/24/23 00:00 99.1 F 48 L 18 145/78 H 98 05/23/23 20:00 98.3 F 63 18 145/69 H 97 05/23/23 18:48 05/23/23 17:00 05/23/23 15:00 05/23/23 16:00 97.6 F 58 L 16 153/73 H 98 05/23/23 13:00 05/23/23 11:52 97.6 F 46 L 16 137/66 99 05/23/23 11:00 05/23/23 09:00 05/23/23 08:30 130/67 05/23/23 08:27 147/71 H 05/23/23 08:01 50 L 154/70 H 97 05/23/23 09:19 97.5 F L 53 L 20 125/64 05/23/23 09:11 97.5 F L 45 L 18 125/64 95 O2 Del Method 05/24/23 07:00 Room Air 05/24/23 05:00 Room Air 05/24/23 04:00 Room Air 05/24/23 03:00 Room Air 05/24/23 01:00 Room Air 05/23/23 23:00 Room Air 05/23/23 21:00 Room Air 05/23/23 20:00 Room Air 05/24/23 00:00 Room Air 05/23/23 20:00 Room Air 05/23/23 18:48 Room Air 05/23/23 17:00 Room Air 05/23/23 15:00 Room Air 05/23/23 16:00 Room Air 05/23/23 13:00 Room Air 05/23/23 11:52 Room Air 05/23/23 11:00 Room Air 05/23/23 09:00 Room Air 05/23/23 08:30 05/23/23 08:27 05/23/23 08:01 05/23/23 09:19 Room Air 05/23/23 09:11 Room Air Intake and Output 05/23/23 05/23/23 05/24/23 15:59 23:59 07:59 Intake Total 450 / 690 240 / 690 Output Total 0 / 0 0 / 0 0 / 0 Balance 450 / 690 240 / 690 0 / 0 Intake: Intake, Oral Amount 450 / 690 240 / 690 Output: Output, Urine Amount 0 / 0 0 / 0 0 / 0 Other: Number of Unmeasured Voids 1 1 1 Weight 94.404 kg 96.672 kg Patient Weight 05/24/23 23:59 Weight 96.672 kg Laboratory Results - last 24 hr 05/23/23 05:39: Hemoglobin A1c 5.9, Lipase 74173 H 05/23/23 08:47: Lactate Dehydrogenase 138 L, Troponin I < 0.01 05/23/23 12:12: POC Glucose 164 H 05/23/23 16:35: POC Glucose 163 H I & O for Labs for Last 24 Hours: Intake & Output 05/21/23 05/22/23 05/23/23 05/24/23 23:59 23:59 23:59 23:59 Intake Total 690 / 690 Output Total 0 / 0 0 / 0 Balance 690 / 690 0 / 0 Weight 94.404 kg 96.672 kg Constitutional: Present no acute distress and obese Head: Present atraumatic and normocephalic ENT: Present normal exam Respiratory: Present normal respiratory effort; Absent rhonchi, wheezes or crackles Cardiac: Present Reg Rate and Rhythm GI: Present soft, tenderness (Right upper quadrant, no rebound) and normal bowel sounds; Absent distention or guarding Extremities: Present normal inspection and full ROM Skin: Present intact; Absent erythema Neuro: Present Grossly Intact, alert, awake, oriented x 3 and moves all extremities Assessment and Plan *Assessment and plan (1) Acute gallstone pancreatitis: Status: Acute Category: Medical Code(s): K85.10 - Biliary acute pancreatitis without necrosis or infection (2) Calculous cholecystitis: Status: Acute Qualifiers: Biliary obstruction: without biliary obstruction Cholecystitis acuity: chronic Qualified Code(s): K80.10 - Calculus of gallbladder with chronic cholecystitis without obstruction Category: Medical Code(s): K80.10 - Calculus of gallbladder with chronic cholecystitis without obstruction (3) Diabetes mellitus type 2, noninsulin dependent: Status: Chronic Category: Medical Co
[2023-05-24 08:01] LABS: Basophils % 0.1 % (0.1-2.0); Eosinophils % 0.1 % (0.1-12.0); Hemoglobin 15.1 g/dL (14.1-18.0); Lymphocytes # 1.1 K/mm3 (0.7-4.5); Lymphocytes % 6.1 % (10-50); Mean Corpuscular HGB Conc 31.5 g/dL (31.8-35.4); Mean Corpuscular Hemoglobin 28.5 pg (27.0-31.2); Mean Corpuscular Volume 90.5 fl (80-94); Mean Platelet Volume 7.5 fl (7.4-10.4); Monocytes # 0.7 K/mm3 (0.1-1.0); Monocytes % 3.6 % (1.7-9.3); Platelet Count 222 K/mm3 (142-424); Red Cell Distribution Width 14.2 % (11.5-17.5); White Blood Count 17.8 K/mm3 (4.8-10.8)
[2023-05-24 08:03] LABS: MANUAL DIFFERENTIAL MANUAL DIFFERENTIAL (MANUAL DIFF)
[2023-05-24 08:12] LABS: POC Glucose,Bedside 133 (70-110)
[2023-05-24 08:12] LABS: POC Glucose,Bedside 173 (70-110)
[2023-05-24 08:15] LABS: Alanine Aminotransferase 22 U/L (12-78); Albumin Level 4.3 g/dl (3.5-5.0); Albumin/Globulin Ratio 1.4 (1.1-1.8); Alkaline Phosphatase 80 U/L (38-126); Anion Gap 11.3 mEq/L (5-15); Aspartate Amino Transferase 34 U/L (17-59); Bilirubin,Total 2.2 mg/dl (0.2-1.3); Blood Urea Nitrogen 17 mg/dl (9-20); Calcium 9.9 mg/dl (8.4-10.2); Carbon Dioxide 26 mmol/L (22.0-30.0); Chloride 102 mmol/L (98-107); Creatinine Clearance Estimated 94 mL/min (50-200); Estimated Glomerular Filt Rate 133 ml/min (>60); GFR (African American) 161 ML/MIN (>60); Glucose 161 mg/dl (74-100); Magnesium 1.8 mg/dl (1.6-2.3); Potassium 4.3 mmoL/L (3.5-5.1); Sodium 135 mmol/L (136-145); Total Protein,Serum 7.3 g/dl (6.3-8.2)
[2023-05-24 08:17] LABS: Lymphocytes % 4 % (10-50); Monocytes % 4 % (2-9); Neutrophils % 92 % (42-76); Total Cells Counted 100
[2023-05-24 08:18] LABS: Platelet Estimate Normal; RBC Morphology Normal
[2023-05-24 09:18] LABS: Lipase 4267 U/L (23-300)
[2023-05-24 11:01] LABS: POC Glucose,Bedside 130 (70-110)
--- NOTE | 2023-05-24 11:46 | PC.NURSE ---
pt up ambulating in the [place] with at this time.
--- NOTE | 2023-05-24 11:58 | P.PN_ITS ---
Subjective Patient reports: no new complaints and feels better Exam Data for Last 24 hours Vital signs and Labs for Last 24 Hours: Temp Pulse Resp BP Pulse Ox O2 Del Method 97.9 F 65 16 134/71 99 Room Air 05/24/23 11:03 05/24/23 11:03 05/24/23 11:03 05/24/23 11:03 05/24/23 11:03 05/24/23 11:03 Laboratory Results - last 24 hr 05/23/23 12:12: POC Glucose 164 H 05/23/23 16:35: POC Glucose 163 H 05/23/23 20:47: POC Glucose 173 H 05/24/23 05:17: POC Glucose 133 H 05/24/23 07:44: WBC 17.8 H D, RBC 5.30, Hgb 15.1, Hct 48.0, MCV 90.5, MCH 28.5, MCHC 31.5 L, RDW 14.2, Plt Count 222, MPV 7.5, Neut % (Auto) 90.0 H, Lymph % (Auto) 6.1 L, [place] % (Auto) 3.6, Eos % (Auto) 0.1, Baso % (Auto) 0.1, Neut # (Auto) 16.0 H, Lymph # (Auto) 1.1, [place] # (Auto) 0.7, Eos # (Auto) 0.0, Baso # (Auto) 0.0, Total Counted 100, Neutrophils % (Manual) 92 H, Lymphocytes % ( Manual) 4 L, Monocytes % (Manual) 4, Platelet Estimate Normal, RBC Morphology Normal, Sodium 135 L, Potassium 4.3, Chloride 102, Carbon Dioxide 26, Anion Gap 11.3, BUN 17, Creatinine 0.60 L D, Estimated Creat Clear 94, Estimated GFR 133, Est GFR ( Amer) 161 D, Glucose 161 H, Calcium 9.9, Magnesium 1.8, Total Bilirubin 2.2 H, AST 34 D, ALT 22, Alkaline Phosphatase 80, Total Protein 7.3, Albumin 4.3, Globulin 3.0, Albumin/Globulin Ratio 1.4, Lipase 4267 H 05/24/23 10:55: POC Glucose 130 H I & O for Last 24 hours: Intake & Output 05/21/23 05/22/23 05/23/23 05/24/23 11:59 11:59 11:59 11:59 Intake Total 1110 / 1110 Output Total 0 / 0 0 / 0 Balance 0 / 0 1110 / 1110 Weight 208 lb 2 oz 213 lb 2 oz Constitutional Constitutional: no acute distress *Routine Respiratory Exam Respiratory: Absent respiratory distress *Routine Cardiovascular Exam Cardiovascular: Absent tachycardia *Routine Abdominal Exam Abdominal: Present soft Progress Note: A&P Assessment and plan (1) Acute gallstone pancreatitis: Status: Acute Assessment and plan: Symptomatic and biochemical improvement noted today (lipase significantly declined to 4267). Transaminases remain normal; however, bilirubin has increased slightly to 2.2. Agree with plans to repeat bilirubin later this afternoon. If bilirubin continues to increase he will likely require transfer to tertiary facility capable of ERCP. Otherwise, continue current medical management with plans for cholecystectomy once pancreatitis resolves. (2) Diabetes mellitus type 2, noninsulin dependent: Status: Chronic (3) S/P coronary artery stent placement: Status: Chronic (4) HHD (hypertensive heart disease): Status: Chronic
[2023-05-24 16:42] LABS: POC Glucose,Bedside 108 (70-110)
--- NOTE | 2023-05-24 17:04 | PC.NURSE ---
pt alert and oriented this shift. ls clear t/o. abdomen soft, round. mild discomfort on palpation. bowel sounds active. pt received clear liquid diet for breakfast and advanced to full liquids after tolerating breakfast. pt has been up ambulating around room intermittently. pt was able to take a nap this shift after stating he only slept approx an hour last night. pt denies any current pain. Lipase has improved. Dr. Watts did come and see patient regarding POC. pt's at bedside. call light w/i reach.
[2023-05-24 17:35] LABS: Alanine Aminotransferase 20 U/L (12-78); Albumin Level 3.7 g/dl (3.5-5.0); Albumin/Globulin Ratio 1.4 (1.1-1.8); Alkaline Phosphatase 95 U/L (38-126); Anion Gap 13.9 mEq/L (5-15); Aspartate Amino Transferase 50 U/L (17-59); Bilirubin,Total 2.2 mg/dl (0.2-1.3); Blood Urea Nitrogen 14 mg/dl (9-20); Calcium 9.7 mg/dl (8.4-10.2); Carbon Dioxide 22 mmol/L (22.0-30.0); Chloride 106 mmol/L (98-107); Creatinine Clearance Estimated 94 mL/min (50-200); Estimated Glomerular Filt Rate 164 ml/min (>60); GFR (African American) 199 ML/MIN (>60); Globulin 2.7 g/dL (1.3-3.2); Glucose 112 mg/dl (74-100); Potassium 4.9 mmoL/L (3.5-5.1); Sodium 137 mmol/L (136-145); Total Protein,Serum 6.4 g/dl (6.3-8.2)
[2023-05-24 20:30] LABS: POC Glucose,Bedside 114 (70-110)
[2023-05-25] VITALS (22 sets, daily range): BP systolic 124–176; BP diastolic 60–93; PULSE 53–73; RESP 14–20; TEMP 36.3–36.9; O2SAT 95–100; BMI 31.5
[2023-05-25 06:19] LABS: Chloride 101 mmol/L (98-107); Sodium 136 mmol/L (136-145)
[2023-05-25 06:22] LABS: Alanine Aminotransferase 19 U/L (12-78); Albumin Level 3.5 g/dl (3.5-5.0); Albumin/Globulin Ratio 1.3 (1.1-1.8); Alkaline Phosphatase 72 U/L (38-126); Aspartate Amino Transferase 26 U/L (17-59); Bilirubin,Total 2.4 mg/dl (0.2-1.3); Blood Urea Nitrogen 12 mg/dl (9-20); Calcium 10.1 mg/dl (8.4-10.2); Carbon Dioxide 26 mmol/L (22.0-30.0); Creatinine Clearance Estimated 94 mL/min (50-200); Estimated Glomerular Filt Rate 133 ml/min (>60); GFR (African American) 161 ML/MIN (>60); Globulin 2.8 g/dL (1.3-3.2); Glucose 135 mg/dl (74-100); Magnesium 1.9 mg/dl (1.6-2.3); Total Protein,Serum 6.3 g/dl (6.3-8.2)
[2023-05-25 06:35] LABS: Basophils % 0.1 % (0.1-2.0); Eosinophils # 0.1 K/mm3 (0.0-0.4); Eosinophils % 0.5 % (0.1-12.0); Hematocrit 44.6 % (42.0-52.0); Hemoglobin 14.3 g/dL (14.1-18.0); Lymphocytes % 6.3 % (10-50); Mean Corpuscular HGB Conc 32.1 g/dL (31.8-35.4); Mean Corpuscular Hemoglobin 28.2 pg (27.0-31.2); Mean Corpuscular Volume 87.8 fl (80-94); Mean Platelet Volume 7.6 fl (7.4-10.4); Monocytes # 0.7 K/mm3 (0.1-1.0); Monocytes % 4.5 % (1.7-9.3); Neutrophils # 13.3 K/mm3 (1.8-7.8); Neutrophils % 88.5 % (37.0-80.0); Platelet Count 217 K/mm3 (142-424); Red Blood Count 5.08 M/mm3 (4.60-6.20); Red Cell Distribution Width 14.2 % (11.5-17.5)
[2023-05-25 06:37] LABS: MANUAL DIFFERENTIAL MANUAL DIFFERENTIAL (MANUAL DIFF)
[2023-05-25 07:42] LABS: Lipase 532 U/L (23-300)
[2023-05-25 07:56] LABS: Amylase 362 U/L (30-110)
[2023-05-25 07:57] LABS: Lipase 527 U/L (23-300)
--- NOTE | 2023-05-25 07:59 | EXP.ACUTE.PN ---
Subjective *Date: 05/25/23 *Time: 16:32 Interval history: Patient feeling better this morning. Tolerated p.o. intake until midnight. N.p.o. at this time pending possible surgical intervention. No nausea or vomiting. No fever overnight. Hemodynamically stable. Medical Exam Vital signs and Labs for Last 24 Hours: Vital Signs Temp Pulse Resp BP Pulse Ox O2 Del Method 05/25/23 07:28 97.8 F 53 L 16 134/70 98 Room Air 05/25/23 06:13 Room Air 05/25/23 04:00 97.7 F 61 18 145/60 H 100 Room Air 05/25/23 05:00 Room Air 05/25/23 03:00 Room Air 05/25/23 00:00 98.3 F 60 18 140/70 98 Room Air 05/25/23 00:29 Room Air 05/24/23 23:00 Room Air 05/24/23 21:00 Room Air 05/24/23 20:00 Room Air 05/24/23 20:00 97.9 F 83 18 127/62 97 Room Air 05/24/23 18:40 Room Air 05/24/23 16:54 Room Air 05/24/23 15:10 98.1 F 49 L 18 134/70 99 Room Air 05/24/23 14:45 Room Air 05/24/23 13:00 Room Air 05/24/23 11:03 97.9 F 65 16 134/71 99 Room Air 05/24/23 10:44 Room Air 05/24/23 09:00 Room Air Intake and Output 05/24/23 05/24/23 05/25/23 15:59 23:59 07:59 Intake Total 390 / 1290 480 / 1290 0 / 0 Output Total 0 / 0 0 / 0 0 / 0 Balance 390 / 1290 480 / 1290 0 / 0 Intake: Intake, Oral Amount 390 / 1290 480 / 1290 0 / 0 Output: Output, Urine Amount 0 / 0 0 / 0 0 / 0 Other: Number of Unmeasured Voids 1 1 1 Weight 96.672 kg 96.675 kg Patient Weight 05/25/23 23:59 Weight 96.675 kg Laboratory Results - last 24 hr 05/23/23 20:47: POC Glucose 173 H 05/24/23 05:17: POC Glucose 133 H 05/24/23 07:44: WBC 17.8 H D, RBC 5.30, Hgb 15.1, Hct 48.0, MCV 90.5, MCH 28.5, MCHC 31.5 L, RDW 14.2, Plt Count 222, MPV 7.5, Neut % (Auto) 90.0 H, Lymph % (Auto) 6.1 L, [place] % (Auto) 3.6, Eos % (Auto) 0.1, Baso % (Auto) 0.1, Neut # (Auto) 16.0 H, Lymph # (Auto) 1.1, [place] # (Auto) 0.7, Eos # (Auto) 0.0, Baso # (Auto) 0.0, Total Counted 100, Neutrophils % (Manual) 92 H, Lymphocytes % (Manual) 4 L, Monocytes % (Manual) 4, Platelet Estimate Normal, RBC Morphology Normal, Sodium 135 L, Potassium 4.3, Chloride 102, Carbon Dioxide 26, Anion Gap 11.3, BUN 17, Creatinine 0.60 L D, Estimated Creat Clear 94, Estimated GFR 133, Est GFR ( Amer) 161 D, Glucose 161 H, Calcium 9.9, Magnesium 1.8, Total Bilirubin 2.2 H, AST 34 D, ALT 22, Alkaline Phosphatase 80, Total Protein 7.3, Albumin 4.3, Globulin 3.0, Albumin/Globulin Ratio 1.4, Lipase 4267 H 05/24/23 10:55: POC Glucose 130 H 05/24/23 16:15: Sodium 137, Potassium 4.9, Chloride 106, Carbon Dioxide 22, Anion Gap 13.9, BUN 14, Creatinine 0.50 L, Estimated Creat Clear 94, Estimated GFR 164, Est GFR ( Amer) 199 D, Glucose 112 H D, Calcium 9.7, Total Bilirubin 2.2 H, AST 50 D, ALT 20, Alkaline Phosphatase 95, Total Protein 6.4, Albumin 3.7 D, Globulin 2.7, Albumin/Globulin Ratio 1.4 05/24/23 16:31: POC Glucose 108 05/24/23 20:22: POC Glucose 114 H 05/25/23 05:48: WBC 15.0 H, RBC 5.08, Hgb 14.3, Hct 44.6, MCV 87.8, MCH 28.2, MCHC 32.1, RDW 14.2, Plt Count 217, MPV 7.6, Neut % (Auto) 88.5 H, Lymph % (Auto) 6.3 L, [place] % (Auto) 4.5, Eos % (Auto) 0.5, Baso % (Auto) 0.1, Neut # (Auto) 13.3 H, Lymph # (Auto) 1.0, [place] # (Auto) 0.7, Eos # (Auto) 0.1, Baso # (Auto) 0.0, Sodium 136, Potassium 4.0, Chloride 101, Carbon Dioxide 26, Anion Gap 13.0, BUN 12, Creatinine 0.60 L, Estimated Creat Clear 94, Estimated GFR 133, Est GFR ( Amer) 161, Glucose 135 H D, Calcium 10.1, Magnesium 1.9, Total Bilirubin 2.4 H, AST 26 D, ALT 19, Alkaline Phosphatase 72, Total Protein 6.3, Albumin 3.5, Globulin 2.8, Albumin/Globulin Ratio 1.3, Lipase 532 H I & O for Labs for Last 24 Hours: Intake & Output 05/22/23 05/23/23 05/24/23 05/25/23 23:59 23:59 23:59 23:59 Intake Total 690 / 690 1290 / 1290 0 / 0 Output Total 0 / 0 0 / 0 0 / 0 Balance 690 / 690 1290 / 1290 0 / 0 Weight 94.404 kg 96.672 kg 96.675 kg Constitutional:
[2023-05-25 08:21] LABS: Lymphocytes % 5 % (10-50); Monocytes % 5 % (2-9); Neutrophils % 90 % (42-76); Total Cells Counted 100
[2023-05-25 08:22] LABS: Platelet Estimate Normal; RBC Morphology Normal
--- NOTE | 2023-05-25 08:43 | EXP.SURG.PN ---
Subjective Narrative: Patient states that he does feel better. Exam Data for Last 24 hours Vital signs and Labs for Last 24 Hours: Temp Pulse Resp BP Pulse Ox O2 Del Method 97.8 F 53 L 16 134/70 98 Room Air 05/25/23 07:28 05/25/23 07:28 05/25/23 07:28 05/25/23 07:28 05/25/23 07:28 05/25/23 07:28 Laboratory Results - last 24 hr 05/24/23 07:44: Lipase 4267 H 05/24/23 10:55: POC Glucose 130 H 05/24/23 16:15: Sodium 137, Potassium 4.9, Chloride 106, Carbon Dioxide 22, Anion Gap 13.9, BUN 14, Creatinine 0.50 L, Estimated Creat Clear 94, Estimated GFR 164, Est GFR ( Amer) 199 D, Glucose 112 H D, Calcium 9.7, Total Bilirubin 2.2 H, AST 50 D, ALT 20, Alkaline Phosphatase 95, Total Protein 6.4, Albumin 3.7 D, Globulin 2.7, Albumin/Globulin Ratio 1.4 05/24/23 16:31: POC Glucose 108 05/24/23 20:22: POC Glucose 114 H 05/25/23 05:48: WBC 15.0 H, RBC 5.08, Hgb 14.3, Hct 44.6, MCV 87.8, MCH 28.2, MCHC 32.1, RDW 14.2, Plt Count 217, MPV 7.6, Neut % (Auto) 88.5 H, Lymph % (Auto) 6.3 L, [place] % (Auto) 4.5, Eos % (Auto) 0.5, Baso % (Auto) 0.1, Neut # (Auto) 13.3 H, Lymph # (Auto) 1.0, [place] # (Auto) 0.7, Eos # (Auto) 0.1, Baso # (Auto) 0.0, Total Counted 100, Neutrophils % (Manual) 90 H, Lymphocytes % (Manual) 5 L, Monocytes % (Manual) 5, Platelet Estimate Normal, RBC Morphology Normal, Sodium 136, Potassium 4.0, Chloride 101, Carbon Dioxide 26, Anion Gap 13.0, BUN 12, Creatinine 0.60 L, Estimated Creat Clear 94, Estimated GFR 133, Est GFR ( Amer) 161, Glucose 135 H D, Calcium 10.1, Magnesium 1.9, Total Bilirubin 2.4 H, AST 26 D, ALT 19, Alkaline Phosphatase 72, Total Protein 6.3, Albumin 3.5, Globulin 2.8, Albumin/Globulin Ratio 1.3, Amylase 362 H*, Lipase 532 H 05/25/23 05:48: Lipase 527 H I & O for Last 24 hours: Intake & Output 05/22/23 05/23/23 05/24/23 05/25/23 11:59 11:59 11:59 11:59 Intake Total 1110 / 1110 870 / 870 Output Total 0 / 0 0 / 0 0 / 0 Balance 0 / 0 1110 / 1110 870 / 870 Weight 208 lb 2 oz 213 lb 2 oz 213 lb 2.11 oz *Routine Abdominal Exam Abdominal: Present soft Progress Note: A&P Assessment and plan (1) Acute gallstone pancreatitis: Status: Acute Assessment and plan: Clinical and laboratory evaluation reveals improving pancreatitis. Bili of 2.4. Tentatively plan for cholecystectomy with intraoperative cholangiogram later today. (2) Calculous cholecystitis: Status: Acute (3) Diabetes mellitus type 2, noninsulin dependent: Status: Chronic (4) Obesity (BMI 30.0-34.9): Status: Chronic (5) CAD (coronary artery disease): Status: Chronic (6) S/P coronary artery stent placement: Status: Chronic (7) HHD (hypertensive heart disease): Status: Chronic (8) HLD (hyperlipidemia): Status: Chronic
--- NOTE | 2023-05-25 10:00 | EXP.CARD.CON ---
History of Present Illness History of Present Illness Consult date: 05/25/23 Requesting physician: Rohan Lazo Consult reason: pre-op evaluation Chief complaint: Abdominal pain History of present illness: Hospitalist note: Mr. Dennison is a 68-year-old male with history of gallbladder disease, previous pancreatitis, hypertension, diabetes, CAD. Presented to the ER with acute upper abdominal pain. Pain is in the epigastric region, radiates to the left upper abdomen. Also having nausea and vomiting. Denies any fever, chills, blood in vomit or stool. No trauma to his abdomen. Work-up in the ER initiated showing mild elevation in white cell count of 11,000, liver enzymes normal. LDH and amylase pending however lipase is severely elevated at almost 48,000. CT of his abdomen obtained showing pancreatitis with enlargement of the pancreatic head and uncinate process. Noted to have some peripancreatic fluid and edema. Some small calcifications in the pancreatic tail consistent with a chronic component to his pancreatitis. Gallbladder does have gallstones but does not appear to show any common bile duct dilatation. Surgery was consulted, they recommended admission for further management. ER consulted medicine for admission. After arriving to the floor, patient still having abdominal pain. Tolerating clear liquids however with no vomiting. Does have some mild nausea. Previously has been seen 3 months ago with similar presentation. Was transferred at that time to [place] due to concern for acute pancreatitis and cholelithiasis. No ERCP was performed. There was plan to do a cholecystectomy with possible cholangiogram as an outpatient. This has not happened as of yet. Patient has seen cardiology however with clearance for possible surgical intervention. Family at bedside, updated of plan Cardiology note: 68-year-old male with past medical history of coronary artery disease, hypertension and diabetes presented to hospital with complaints of abdominal pain and is awaiting surgical intervention for cholecystectomy with intraoperative cholangiogram later today. Cardiology was asked to evaluate for surgical clearance. This morning on evaluation patient is sitting up and denies chest pain or shortness of breath. Recent echo shows a preserved ejection fraction, normal right ventricular function and no valvular abnormalities noted. Morning labs reviewed. [facility] Disclaimer: The information contained in this section may have been updated after the patient was seen, as this information can be updated by other users. Medical History Abnormal liver enzymes Bradycardia CAD (coronary artery disease) HHD (hypertensive heart disease) HLD (hyperlipidemia) Surgical History S/P coronary artery stent placement Social History Smoking Status: Never smoker second hand exposure: No alcohol intake: current substance use type: denies use current occupational status: retired Travel in the last 8 weeks: Inside the [place] household members: spouse housing: house current occupational exposures/hazards: No caffeine: Yes (coffee) Review of Systems Review of Systems Review of systems:: pertinent systems reviewed and negative unless documented below Exam Data for Last 24 hours Vital signs and Labs for Last 24 Hours: Temp Pulse Resp BP Pulse Ox O2 Del Method 97.8 F 53 L 16 134/70 98 Room Air 05/25/23 07:28 05/25/23 07:28 05/25/23 07:28 05/25/23 07:28 05/25/23 08:00 05/25/23 09:00 Laboratory Results - last 24 hr 05/24/23 10:55: POC Glucose 130 H 05/24/23 16:15: Sodium 137, Potassium 4.9, Chloride 106, Carbon Dioxide 22, Anion Gap 13.9, BUN 14, Creatinine 0.50 L, Estimated Creat Clear 94, Estimated GFR 164, Est GFR ( Amer) 199 D, Glucose 112 H D, Calcium 9
--- NOTE | 2023-05-25 13:18 | EXP.OP.NOTE ---
Date of procedure: 05/25/23 Pre-op Diagnosis:: Biliary pancreatitis Post-op Diagnosis:: Same Procedure performed:: Laparoscopic cholecystectomy with intraoperative cholangiogram Surgeon:: Jameson Head MD CLINICAL HAEMATOLOGIST:: Other Anesthesia: GETA Estimated blood loss (mL): 25 Clinical Note:: Patient is a 68-year-old male who has a history of apparent biliary pancreatitis. He had presented to the emergency department on 03/12/2023 with acute upper abdominal pain. At that time blood work revealed amylase of 3760, lipase 48,791, bilirubin 3.0. CT scan revealed findings of acute pancreatitis and cholelithiasis with multiple small layering gallstones. Patient was transferred to [facility] in [place]. He apparently had several days hospitalization and the exact details are unknown. He was treated without intervention for presumed biliary pancreatitis. I have obtained the discharge summary from that hospitalization and he was managed without intervention from 03/12/2023 to 03/15/2023. Gastroenterology was consulted. He did not undergo ERCP or MRCP. I had seen the patient in the office recently on 03/21/2023 as an initial consultation for gallstones after referral from his primary care provider. I had felt that cholecystectomy would be warranted. He has a history of CAD, previous coronary stents, NSTEMI, HTN, Hyperlipidemia, Diabetes. Tentative plan for laparoscopic with possibly open cholecystectomy with possible cholangiogram after cardiology clearance. He did see cardiology as an outpatient and recommendations were for echocardiogram which was obtained ultimately revealing ejection fraction of 50 to 60% but there is no final risk stratification disposition. Patient presented to the emergency department this morning (05/23/23) due to acute onset epigastric pain, nausea, and projectile vomiting beginning at 4AM. Evaluation in the emergency department revealed bilirubin of 1.8. Transaminases and alkaline phosphatase are normal. Lipase 47,835. CT scan reveals findings of pancreatitis characterized by enlargement of the pancreatic head and uncinate process with focal peripancreatic fluid and edema. There are a few calcifications in the pancreatic tail consistent with chronic pancreatitis. Gallstones were identified. His white blood cell count is 11,900, glucose 192, AST 27, ALT 20. LDH 138. Amylase pending. Hematocrit 44%, BUN 17, calcium 9.8. Patient convalesced well over a couple of days with marked improvement in pancreatic enzymes. Bilirubin was somewhat above normal at 2.4. Plan was made to proceed with cholecystectomy with probable cholangiogram. Operative findings:: He had a somewhat distended gallbladder with pericholecystic fluid likely secondary to biliary pancreatitis. There was some secondary edema of the gallbladder. Intraoperative cholangiogram was performed which revealed no evidence of biliary obstruction but possible transient filling defect, stone or air bubble, distal common bile duct without definitive dilatation or obstruction. Radiology interpretation pending at the time of this dictation. Operative note:: Patient was taken the operating room. He was given preoperative intravenous antibiotics. In the operating room he was placed in a supine position. General anesthesia was induced via endotracheal tube. Abdomen was prepped and draped in the standard surgical fashion. Subumbilical skin incision was made and while performing abdominal wall lift Veress needle was inserted. CO2 pneumoperitoneum was achieved to 15 mmHg. 11 mm optical trocar was inserted at the umbilicus. Intraperitoneal contents were visualized. Due to the patient's anatomy and possible retroperitoneal edema visualization was difficult to achieve and therefore the 0 degree laparoscope was replaced with the 10 mm 45 degree angle laparoscope. A couple 5 mm trocars were inserted in the right upper abdomen. 10 mm trocar was inserted in the epigastrium. Gallbladder w
--- NOTE | 2023-05-25 14:45 | XR_ITS ---
FINAL REPORT TECHNIQUE: Fluoroscopic imaging performed for intraoperative cholangiogram. CLINICAL HISTORY: CHOLANGIOGRAM, OR fluoro time.23 FINDINGS: A single fluoroscopic image was obtained for intraoperative cholangiogram. No filling defect is identified within the biliary system. Contrast is seen into the duodenum. 23 seconds of fluoroscopy time was reported. IMPRESSION: Intraoperative cholangiogram with 23 seconds of fluoroscopy time reported. Reviewed, Interpreted and Dictated by Jameson Kauffman III, MD Transcribed by Mehnaz Shane Authenticated and [facility]
[2023-05-25 15:05] LABS: POC Glucose,Bedside 124 (70-110)
--- NOTE | 2023-05-25 15:13 | P.PNANES_ITS ---
[facility] Disclaimer: The information contained in this section may have been updated after the patient was seen, as this information can be updated by other users. Medical History Abnormal liver enzymes Bradycardia CAD (coronary artery disease) HHD (hypertensive heart disease) HLD (hyperlipidemia) Surgical History S/P coronary artery stent placement Social History Smoking Status: Never smoker second hand exposure: No alcohol intake: current substance use type: denies use current occupational status: retired Travel in the last 8 weeks: [place] the [place] household members: spouse housing: house current occupational exposures/hazards: No caffeine: Yes (coffee) [facility] Anesthesia Checklist Patient Identification Patient Identification: Arm Band and Family Structural Data Admitted From: Home Planned Operative Procedure/s: Lap Sarahi Consent for Planned Operative Procedure(s) Verified: Yes Verified Documents: Surgical Consent and History and Physical NPO Status Verified Time NPO: 00:00 Additional verifications Patient : No Anesthesia Reactions: No Hx Blood Transfusions: No Blood Transfusion Reaction: No Cephalosporin Allergy: No Previous Colonoscopy: No Airway Assessment Mallampati Score:: Class II C-Spine Mobility Assessed: Yes TMJ Mobility Assessed: Yes Dentition: Good Dentition Neurological Assessment Level of Consciousness: Awake, Alert, Appropriate and Follows Commands Hx Seizures: No Numbness or tingling in extremities: No Anesthesia Plan Anesthesia Risk discussed: Yes ASA Class: III Anesthesia Type: General Preoperative Comments Pre-Operative Comments: [place] Five years ago. NIDDM. Cardiac stents X5. Hypertension.
--- NOTE | 2023-05-25 15:16 | P.PNANES_ITS ---
[facility] Anesthesia Record Part I Anesthesia Record I Intake, IV Amount: 1,000 Hydration: Adequate Estimated blood loss (mL): 20 Urine output (mL): 0 Blood Products used (#): none Blood Pressure: 156/83 SaO2: 96 Pulse Rate: 61 Airway Patency: Patent Respiratory Rate: 14 Temperature: 97.4 F Pain scale (0-10): 0 Nausea: No Vomiting: No Patient is:: Drowsy and Stable Stable to PACU at:: 14:55
[2023-05-25 16:57] LABS: POC Glucose,Bedside 102 (70-110)
[2023-05-25 16:57] LABS: POC Glucose,Bedside 120 (70-110)
--- NOTE | 2023-05-25 18:24 | PC.NURSE ---
PT IS RESTING IN BED. ALERT AND ORIENTED X4. PT HAS BEEN UP AMBULATING TO THE BATHROOM SINCE ARRIVING BACK TO THE FLOOR FROM SURGERY. DRESSINGS TO THE ABDOMEN C/D/I. TOLERATING FULL LIQUID DIET. LUNG SOUNDS CLEAR. NO SWELLING NOTED TO BLE. WILL CONTINUE TO MONITOR.
[2023-05-25 20:31] LABS: POC Glucose,Bedside 151 (70-110)
[2023-05-26] VITALS: BP 119/63; PULSE 62; RESP 17; TEMP 36.7; O2SAT 95
[2023-05-26 04:00] VITALS: BP 117/72; PULSE 50; RESP 16; TEMP 36.7; O2SAT 93; BMI 30.9
--- NOTE | 2023-05-26 04:42 | PC.NURSE ---
Patient alert and oriented this shift. Post op vitals WNL. Surgical incisions sites clean dry and intact. No complaints of pain voiced. Patient ambulated to restroom independently. Call hammond and personal items in reach. POC ongoing.
[2023-05-26 05:44] LABS: POC Glucose,Bedside 106 (70-110)
[2023-05-26 05:53] LABS: Eosinophils # 0.1 K/mm3 (0.0-0.4); Eosinophils % 0.5 % (0.1-12.0); Lymphocytes # 1.1 K/mm3 (0.7-4.5); Lymphocytes % 9.4 % (10-50); Mean Corpuscular HGB Conc 32.1 g/dL (31.8-35.4); Mean Corpuscular Hemoglobin 28.1 pg (27.0-31.2); Mean Corpuscular Volume 87.6 fl (80-94); Mean Platelet Volume 7.4 fl (7.4-10.4); Monocytes # 0.7 K/mm3 (0.1-1.0); Monocytes % 5.8 % (1.7-9.3); Neutrophils % 84.3 % (37.0-80.0); Platelet Count 232 K/mm3 (142-424); Red Blood Count 4.34 M/mm3 (4.60-6.20); Red Cell Distribution Width 14.3 % (11.5-17.5); White Blood Count 11.9 K/mm3 (4.8-10.8)
[2023-05-26 05:59] LABS: Chloride 99 mmol/L (98-107); Potassium 3.6 mmoL/L (3.5-5.1); Sodium 133 mmol/L (136-145)
[2023-05-26 06:01] LABS: Amylase 109 U/L (30-110); Blood Urea Nitrogen 15 mg/dl (9-20); Creatinine Clearance Estimated 92 mL/min (50-200); Estimated Glomerular Filt Rate 133 ml/min (>60); GFR (African American) 161 ML/MIN (>60)
[2023-05-26 06:02] LABS: Alanine Aminotransferase 42 U/L (12-78); Albumin Level 2.9 g/dl (3.5-5.0); Albumin/Globulin Ratio 1.1 (1.1-1.8); Alkaline Phosphatase 104 U/L (38-126); Anion Gap 10.6 mEq/L (5-15); Aspartate Amino Transferase 48 U/L (17-59); Bilirubin,Total 2.7 mg/dl (0.2-1.3); Calcium 9.6 mg/dl (8.4-10.2); Carbon Dioxide 27 mmol/L (22.0-30.0); Globulin 2.7 g/dL (1.3-3.2); Glucose 123 mg/dl (74-100); Total Protein,Serum 5.6 g/dl (6.3-8.2)
[2023-05-26 06:07] LABS: Hemoglobin 12.2 g/dL (14.1-18.0)
[2023-05-26 06:13] LABS: Lipase 109 U/L (23-300)
--- NOTE | 2023-05-26 06:57 | P.PNANES_ITS ---
[facility] Anesthesia Record Part II Anesthesia Record Part II Discharge Time: 15:25 Destination: Second Floor PACU nurse assessment reviewed?: Yes Patient Condition:: Good Anesthesia Complications:: None Swallowing reflex intact?: Yes Airway Patency: Patent Cyanosis?: No Blood Pressure: 151/85 SaO2: 97 Respiratory Rate: 20 Pulse Rate: 67 Temperature: 98 F Mental Status: Alert & Oriented Pain level:: 0 Nausea and/or vomitting:: None Intake, IV Amount: 0 Hydration: Adequate
[2023-05-26 06:58] VITALS: BP 151/85; PULSE 67; RESP 20; TEMP 36.6; O2SAT 97
--- NOTE | 2023-05-26 07:51 | EXP.DC.SUM ---
General Admission date:: 05/23/23 Discharge date: 05/26/23 HPI HPI HPI: Mr. Dennison is a 68-year-old male with history of gallbladder disease, previous pancreatitis, hypertension, diabetes, CAD. Presented to the ER with acute upper abdominal pain. Pain is in the epigastric region, radiates to the left upper abdomen. Also having nausea and vomiting. Denies any fever, chills, blood in vomit or stool. No trauma to his abdomen. Work-up in the ER initiated showing mild elevation in white cell count of 11,000, liver enzymes normal. LDH and amylase pending however lipase is severely elevated at almost 48,000. CT of his abdomen obtained showing pancreatitis with enlargement of the pancreatic head and uncinate process. Noted to have some peripancreatic fluid and edema. Some small calcifications in the pancreatic tail consistent with a chronic component to his pancreatitis. Gallbladder does have gallstones but does not appear to show any common bile duct dilatation. Surgery was consulted, they recommended admission for further management. ER consulted medicine for admission. After arriving to the floor, patient still having abdominal pain. Tolerating clear liquids however with no vomiting. Does have some mild nausea. Previously has been seen 3 months ago with similar presentation. Was transferred at that time to [place] due to concern for acute pancreatitis and cholelithiasis. No ERCP was performed. There was plan to do a cholecystectomy with possible cholangiogram as an outpatient. This has not happened as of yet. Patient has seen cardiology however with clearance for possible surgical intervention. Family at bedside, updated of plan. Hospital Course Hospital Course Hospital Course: Mr. Dennison is a 68-year-old male history of diabetes, CAD, hypertension with presentation for abdominal pain. Findings concerning for pancreatitis. Likely secondary to passage of gallstones or sludge given finding of gallstone disease and cholecystitis. Surgery consulted to assist with care of patient. Overall is doing well from his pancreatitis. Improved to the point tolerating p.o. intake. Cholecystectomy performed on 05/25. Remained stable with marginal bump in bilirubin to 2.7 by day of discharge. Stable to discharge home however with close follow-up and outpatient labs in the coming days. Plan to see surgery next week. Problems addressed as follows: Pancreatitis Calculus cholecystitis -Lipase elevated at approximately 48,000 on admission, gradually improved to normal during hospitalization. Able to advance diet without significant pain. AST, alkaline phosphatase, ALT were all normal during hospitalization. His bilirubin interestingly was elevated at 1.9 on admission and increased to 2.7 after surgery. Chart review shows that his bilirubin has been no lower than 1.6-2.0 for at least the past 5 years. Suspect component of mild elevation at baseline. Patient may have a condition such as [place]. Warrants further evaluation with GI as an outpatient. At this time however, there is no concern for obstruction after patient's cholecystectomy and based on the imaging from his intraoperative cholangiogram. Tolerated cholecystectomy well without complication. Patient will have follow-up next week with surgery. Repeat labs in 3 days to monitor bilirubin and liver enzymes. As he is tolerating p.o. intake, clinically appears well, stable for discharge home. -Of note his Janny criteria on admission was one-point, had one-point at 48 hours, low risk for mortality from his pancreatitis. -Pain well controlled without opiates for 24 hours prior to discharge. Recommended ibuprofen or Tylenol as needed for pain control after discharge. Type 2 diabetes -Sliding scale insulin with fingersticks ACHS. During hospitalization. A1c obtained at 5.9. Very well controlled. Okay to resume his home metformin at discharge, held during hospitalization due to pancreatitis.
[2023-05-26 07:57] VITALS: BP 128/77; PULSE 64; RESP 16; TEMP 36.6; O2SAT 99
--- NOTE | 2023-05-26 08:34 | EXP.PHA.PN ---
Subjective *Date: 05/26/23 *Time: 08:34 Medical Exam Vital signs and Labs for Last 24 Hours: Vital Signs Temp Pulse Pulse Resp BP BP Pulse Ox 05/26/23 07:57 97.9 F 64 16 128/77 99 05/26/23 06:43 05/26/23 04:47 05/26/23 04:00 98.1 F 50 L 16 117/72 93 L 05/26/23 03:00 05/26/23 01:00 05/26/23 00:00 98.1 F 62 17 119/63 95 05/25/23 23:00 05/25/23 21:00 05/25/23 22:00 98.5 F 68 16 124/67 98 05/25/23 21:00 98.3 F 70 16 132/67 97 05/25/23 20:00 05/25/23 20:30 98.3 F 73 18 128/68 96 05/25/23 20:00 98.3 F 73 16 138/67 97 05/25/23 19:00 64 16 152/80 H 95 05/25/23 18:31 05/25/23 18:00 58 L 18 174/88 H 96 05/25/23 17:00 05/25/23 17:30 55 L 18 165/92 H 95 05/25/23 17:00 72 16 176/92 H 96 05/25/23 16:30 63 18 155/93 H 95 05/25/23 16:15 72 16 155/72 H 96 05/25/23 16:00 59 L 18 153/72 H 95 05/25/23 15:45 58 L 16 145/77 H 96 05/25/23 15:34 97.9 F 59 L 20 151/82 H 97 05/25/23 15:15 66 16 124/67 96 05/25/23 15:05 64 16 155/73 H 96 05/25/23 15:25 98 F 67 17 151/85 H 97 05/25/23 14:55 97.4 F L 60 14 145/78 H 95 05/25/23 10:38 05/25/23 09:00 05/26/23 06:58 20 05/25/23 15:17 97.4 F L 61 14 156/83 H O2 Del Method 05/26/23 07:57 Room Air 05/26/23 06:43 Room Air 05/26/23 04:47 Room Air 05/26/23 04:00 Room Air 05/26/23 03:00 Room Air 05/26/23 01:00 Room Air 05/26/23 00:00 Room Air 05/25/23 23:00 Room Air 05/25/23 21:00 Room Air 05/25/23 22:00 Room Air 05/25/23 21:00 Room Air 05/25/23 20:00 Room Air 05/25/23 20:30 Room Air 05/25/23 20:00 Room Air 05/25/23 19:00 Room Air 05/25/23 18:31 Room Air 05/25/23 18:00 Room Air 05/25/23 17:00 Room Air 05/25/23 17:30 Room Air 05/25/23 17:00 Room Air 05/25/23 16:30 Room Air 05/25/23 16:15 Room Air 05/25/23 16:00 Room Air 05/25/23 15:45 Room Air 05/25/23 15:34 Room Air 05/25/23 15:15 Room Air 05/25/23 15:05 Room Air 05/25/23 15:25 Room Air 05/25/23 14:55 Room Air 05/25/23 10:38 Room Air 05/25/23 09:00 Room Air 05/26/23 06:58 05/25/23 15:17 Intake and Output 05/25/23 05/26/23 05/26/23 23:59 07:59 15:59 Intake Total 360 / 360 Output Total 100 / 100 0 / 0 Balance -100 / 900 360 / 360 Intake: Intake, Oral Amount 360 / 360 Intake, Total IV Amount 0 / 0 Output: Output, Urine Amount 100 / 100 0 / 0 Other: Number of Unmeasured Voids 1 Weight 94.574 kg Patient Weight 05/26/23 23:59 Weight 94.574 kg Laboratory Results - last 24 hr 05/25/23 11:31: POC Glucose 102 05/25/23 14:58: POC Glucose 124 H 05/25/23 16:51: POC Glucose 120 H 05/25/23 20:20: POC Glucose 151 H 05/26/23 05:30: WBC 11.9 H, RBC 4.34 L, Hgb 12.2 L D, Hct 38.0 L, MCV 87.6, MCH 28.1, MCHC 32.1, RDW 14.3, Plt Count 232, MPV 7.4, Neut % (Auto) 84.3 H, Lymph % (Auto) 9.4 L, [place] % (Auto) 5.8, Eos % (Auto) 0.5, Baso % (Auto) 0.0 L, Neut # (Auto) 10.0 H, Lymph # (Auto) 1.1, [place] # (Auto) 0.7, Eos # (Auto) 0.1, Baso # (Auto) 0.0, Sodium 133 L, Potassium 3.6, Chloride 99, Carbon Dioxide 27, Anion Gap 10.6, BUN 15, Creatinine 0.60 L, Estimated Creat Clear 92, Estimated GFR 133, Est GFR ( Amer) 161, Glucose 123 H, Calcium 9.6, Total Bilirubin 2.7 H, AST 48 D, ALT 42 D, Alkaline Phosphatase 104, Total Protein 5.6 L, Albumin 2.9 L D, Globulin 2.7, Albumin/Globulin Ratio 1.1, Amylase 109 D, Lipase 109 05/26/23 05:38: POC Glucose 106 I & O for Labs for Last 24 Hours: Intake & Output 05/23/23 05/24/23 05/25/23 05/26/23 23:59 23:59 23:59 23:59 Intake Total 690 / 690 1290 / 1290 1000 / 1000 360 / 360 Output Total 0 / 0 0 / 0 100 / 100 0 / 0 Balance 690 / 690 1290 / 1290 900 / 900 360 / 360 Weight 94.404 kg 96.672 kg 96.675 kg 94.574 kg The patient's infection will respond to the chosen ABx?: Yes
[2023-05-26 11:45] VITALS: BP 121/55; PULSE 63; RESP 16; TEMP 36.7; O2SAT 98
--- NOTE | 2023-05-26 11:48 | HMH.PHAINT1 ---
Pharmacy Intervention Comments: DISCHARGE MEDICATION COUNSELING PROVIDED. 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
--- NOTE | 2023-05-29 13:41 | CARE MANAGER ---
Called and spoke with patient regarding recent discharge. Patient stated that he is doing well. Wasn't aware that he was supposed to have atorvastatin on hold, but would stop taking it now. He was aware of scheduled f/u appts. No questions or concerns at time of call.
== END 2023-05-26 11:53 | disposition home or self-care (01) | DRG 417 ==
LOC: ER 07:58 → 2ND 08:34
PROVIDERS: Emergency Medicine; Surgery; Admitting Provider Internal Medicine Adolescent Medicine; Emergency Provider Student in an Organized Health Care Education/Training Program; PCP Family Medicine; Visit Provider Internal Medicine Adolescent Medicine
PROC: 0FT44ZZ Resection of Gallbladder, Percutaneous Endoscopic Approach (ICD-10-PCS; principal; 2023-05-25 12:50)
DX: K80.10 Calculus of gallbladder with chronic cholecystitis without obstruction (principal); K85.10 Biliary acute pancreatitis without necrosis or infection; E66.9 Obesity, unspecified; Z68.30 Body mass index [BMI] 30.0-30.9, adult; I25.10 Atherosclerotic heart disease of native coronary artery without angina pectoris; I25.2 Old myocardial infarction; E78.5 Hyperlipidemia, unspecified; Z95.5 Presence of coronary angioplasty implant and graft; I10 Essential (primary) hypertension; E78.2 Mixed hyperlipidemia
CPT/HCPCS: 47563; 36415; 74177; 74300; 76705; 80053; 82150; 82962; 83036; 83605; 83615; 83690; 83735; 84484; 85007; 85025; 88304; 93005; 99291; J1956; J2405; Q9967

== ENCOUNTER → 2023-05-29 08:27 | Outpatient (CLI) | payer MEDICARE, SELFPAY ==
[2023-05-29 09:41] LABS: Basophils % 0.2 % (0.1-2.0); Eosinophils # 0.2 K/mm3 (0.0-0.4); Eosinophils % 1.9 % (0.1-12.0); Hematocrit 35.1 % (42.0-52.0); Hemoglobin 11.5 g/dL (14.1-18.0); Lymphocytes # 1.5 K/mm3 (0.7-4.5); Lymphocytes % 16.8 % (10-50); Mean Corpuscular HGB Conc 32.7 g/dL (31.8-35.4); Mean Corpuscular Hemoglobin 28.3 pg (27.0-31.2); Mean Corpuscular Volume 86.6 fl (80-94); Mean Platelet Volume 7.2 fl (7.4-10.4); Monocytes # 0.5 K/mm3 (0.1-1.0); Monocytes % 5.8 % (1.7-9.3); Neutrophils # 6.5 K/mm3 (1.8-7.8); Neutrophils % 75.2 % (37.0-80.0); Platelet Count 261 K/mm3 (142-424); Red Blood Count 4.06 M/mm3 (4.60-6.20); White Blood Count 8.6 K/mm3 (4.8-10.8)
[2023-05-29 10:11] LABS: Alanine Aminotransferase 66 U/L (12-78); Albumin Level 3.1 g/dl (3.5-5.0); Albumin/Globulin Ratio 1.3 (1.1-1.8); Alkaline Phosphatase 128 U/L (38-126); Anion Gap 9.5 mEq/L (5-15); Aspartate Amino Transferase 60 U/L (17-59); Blood Urea Nitrogen 14 mg/dl (9-20); Calcium 9.3 mg/dl (8.4-10.2); Carbon Dioxide 29 mmol/L (22.0-30.0); Chloride 101 mmol/L (98-107); Estimated Glomerular Filt Rate 133 ml/min (>60); GFR (African American) 161 ML/MIN (>60); Globulin 2.4 g/dL (1.3-3.2); Glucose 111 mg/dl (74-100); Potassium 3.5 mmoL/L (3.5-5.1); Sodium 136 mmol/L (136-145); Total Protein,Serum 5.5 g/dl (6.3-8.2)
== END ==
PROVIDERS: PCP Family Medicine; Visit Provider Internal Medicine Adolescent Medicine
DX: K85.90 Acute pancreatitis without necrosis or infection, unspecified (principal); E80.6 Other disorders of bilirubin metabolism
CPT/HCPCS: 36415; 80053; 85025

== ENCOUNTER → 2023-06-01 10:37 | Outpatient (CLI) | payer MEDICARE, SELFPAY ==
[2023-06-01 10:56] LABS: Basophils % 0.4 % (0.1-2.0); Eosinophils # 0.3 K/mm3 (0.0-0.4); Eosinophils % 4.2 % (0.1-12.0); Hemoglobin 11.2 g/dL (14.1-18.0); Lymphocytes # 1.8 K/mm3 (0.7-4.5); Lymphocytes % 25.3 % (10-50); Mean Corpuscular Hemoglobin 29.1 pg (27.0-31.2); Mean Corpuscular Volume 88.1 fl (80-94); Mean Platelet Volume 7.3 fl (7.4-10.4); Monocytes # 0.4 K/mm3 (0.1-1.0); Monocytes % 5.2 % (1.7-9.3); Neutrophils # 4.7 K/mm3 (1.8-7.8); Platelet Count 277 K/mm3 (142-424); Red Blood Count 3.86 M/mm3 (4.60-6.20); Red Cell Distribution Width 14.1 % (11.5-17.5); White Blood Count 7.2 K/mm3 (4.8-10.8)
[2023-06-01 11:17] LABS: Amylase 75 U/L (30-110); Lipase 165 U/L (23-300)
[2023-06-01 11:18] LABS: Alanine Aminotransferase 46 U/L (12-78); Albumin Level 3.3 g/dl (3.5-5.0); Albumin/Globulin Ratio 1.3 (1.1-1.8); Alkaline Phosphatase 135 U/L (38-126); Anion Gap 10.1 mEq/L (5-15); Aspartate Amino Transferase 46 U/L (17-59); Bilirubin,Total 3.1 mg/dl (0.2-1.3); Blood Urea Nitrogen 14 mg/dl (9-20); Calcium 9.3 mg/dl (8.4-10.2); Carbon Dioxide 30 mmol/L (22.0-30.0); Chloride 100 mmol/L (98-107); Estimated Glomerular Filt Rate 133 ml/min (>60); GFR (African American) 161 ML/MIN (>60); Globulin 2.5 g/dL (1.3-3.2); Glucose 91 mg/dl (74-100); Potassium 4.1 mmoL/L (3.5-5.1); Sodium 136 mmol/L (136-145); Total Protein,Serum 5.8 g/dl (6.3-8.2)
== END ==
PROVIDERS: PCP Family Medicine; Visit Provider Surgery
DX: E66.9 Obesity, unspecified (principal); K85.10 Biliary acute pancreatitis without necrosis or infection; Z68.30 Body mass index [BMI] 30.0-30.9, adult
CPT/HCPCS: 36415; 80053; 82150; 83690; 85025